=== PATIENT | female | born 1955 | race Caucasian/White ===

== ENCOUNTER 2024-01-21 20:31 | Inpatient (IN) | payer MEDICARE, OTHER, SELFPAY ==
[2024-01-21] VITALS (7 sets, daily range): BP systolic 105–208; BP diastolic 56–130; BMI 29.7; BMI 28.7
--- NOTE | 2024-01-21 16:12 | ED.GENMED ---
History of Present Illness
<Eveline Mora PA-C - Last Filed: 01/21/24 19:21>
General
Chief Complaint: Back Pain
Source: patient
Exam Limitations: none
Time Seen by Provider: 01/21/24 16:07
Nursing documentation reviewed up to this point in time: agreed with
History of Present Illness
History of Present Illness:
68-year-old female with past medical history of chronic cholecystitis, prior CVA with left-sided urosepsis, insulin-dependent diabetes, presents emergency room today with right-sided low back pain and burning with urination. Patient states that a
few days ago, she started to have burning with urination was diagnosed with a urinary tract infection. She started on trimethoprim. She had 3 days of this antibiotic. This morning she woke up with right-sided flank pain and notes that her
urinary symptoms have not improved. She also was told that she has a fungal infection of her vagina which is also causing her discomfort. She also states that she has intermittent nausea. She denies fevers or chills, vomiting, diarrhea,
constipation. She states that she has a history of recurrent UTIs and urosepsis which she has been hospitalized for at [facility] multiple times in the past. Her urologist of Dr. Cari Lawton. She denies feelings of urinary retention.
Review of Systems
<Eveline Mora PA-C - Last Filed: 01/21/24 19:21>
Review of Systems
All Other Systems: ROS reviewed and negative except as documented in HPI and ROS
Phy Exam
<Eveline Mora PA-C - Last Filed: 01/21/24 19:21>
Physical Exam
Physical Exam:
General: Patient is well appearing and in no acute distress; non-toxic
Skin: Warm and dry, no rashes or lesions
Head: Normocephalic, atraumatic
Eyes: Sclera non-icteric. EOMs intact. PERRLA.
Cardiac: Regular rate and rhythm, no murmurs
Peripheral Vascular: No lower extremity swelling or edema
Pulm: Normal respiratory effort
Abdomen: Lower abdominal tenderness noted to palpation, no rebound tenderness, no guarding.Right sided CVA tenderness noted, no overlying ecchymosis.
Genitourinary: Erythema and macular rash noted to vulva and labia.
Neuro: CN II-XII intact, left sided hemiparesis noted (chronic)
Psychiatric: Appropriate mood and affect.
Course
<Eveline Mora PA-C - Last Filed: 01/21/24 19:21>
Orders/Labs/Results
Orders:
Orders
01/21/24 16:21
Complete Blood Count/With Diff Urgent
Comprehensive Metabolic Panel Urgent
Lipase Urgent
Comment: ADD ON
01/21/24 16:53
CT Abd/pelvis W Iv Cont Urgent
Comment:
Reason For Exam: right flank pain, diffuse abdominal pain
01/21/24 16:55
0.9% Sodium Chloride 500 ml [Nss] 500 ml IV BOLUS
01/21/24 17:06
Urinalysis Reflex To Culture Urgent
Date Specimen was Collected: 01/21/24
Time Specimen was Collected: 16:11
Urine Microscopic Reflex Cult Urgent
Urine Culture Urgent
SRIDHAR Source: U
Specimen Description:
Date Specimen was Collected: 01/21/24
Time Specimen was Collected: 16:11
01/21/24 17:21
Morphine Sulfate 4 mg IV NOW STA
01/21/24 17:32
CT Abd/pel Without Iv Or Oral Urgent
Comment:
Reason For Exam: right flank pain
01/21/24 18:08
Add On- LAB Urgent
Tests Added?: lipase
01/21/24 19:09
Aztreonam [Azactam] 1,000 mg IV NOW STA
01/21/24 19:11
Sterile Water [Sterile Water For Injection] 10 ml IV NOW STA
Abnormal Lab Results
01/21/24 01/21/24
16:21 17:06
WBC 12.6 H 10^3/uL
(4.8-10.8)
MPV 11.0 H fL
(7.4-10.4)
Abs Immat Gran (auto) 0.1 H 10^3/uL
(0-0.05)
Absolute Neuts (auto) 6.9 H 10^3/uL
(1.4-6.5)
Absolute Lymphs (auto) 4.0 H 10^3/uL
(1.2-3.4)
Absolute Monos (auto) 1.0 H 10^3/uL
(0.1-0.6)
Potassium 5.3 H mmol/L
(3.5-5.1)
Glucose 305 H mg/dl
(70-99)
AST 77 H U/L
(14-36)
ALT 88 H U/L
(0-35)
Alkaline Phosphatase 157 H U/L
(38-126)
Lipase 306 H U/L
(23-300)
Ur Occult Blood Reflex 4+ A
(Negative)
Leukocyte Esterase Rfl 2+ A
(Negative)
Urine RBC 50-60 A /HPF
(0-2)
Urine WBC (Reflex) 30-40 A /HPF
(0-5)
Urine Bacteria (Reflex) Few A
(Negative)
Urine Glucose Trace A
(Negative)
Urine Albumin (Reflex) 1+ A
(Neg - Trace)
01/21/24 16:21
01/21/24 16:21
Vital Signs
Initial and Last Documented VS:
Initial Vital Signs
Temp Pulse Resp BP Pulse Ox
98.6 F 87 15 137/76 97
01/21/24 16:04 01/21/24 16:04 01/21/24 16:04 01/21/24 16:04 01/21/24 16:04
Last Documented Vital Signs
Temp Pulse Resp BP Pulse Ox
98.6 F 76 15 128/64 98
01/21/24 16:04 01/21/24 18:45 01/21/24 18:45 01/21/24 17:00 01/21/24 18:45
<Turner Schaeffer MD - Last Filed: 01/21/24 19:08>
Orders/Labs/Results
Orders:
Orders
01/21/24 16:21
Complete Blood Count/With Diff Urgent
Comprehensive Metabolic Panel Urgent
Lipase Urgent
Comment: ADD ON
01/21/24 16:53
CT Abd/pelvis W Iv Cont Urgent
Comment:
Reason For Exam: right flank pain, diffuse abdominal pain
01/21/24 16:55
0.9% Sodium Chloride 500 ml [Nss] 500 ml IV BOLUS
01/21/24 17:06
Urinalysis Reflex To Culture Urgent
Date Specimen was Collected: 01/21/24
Time Specimen was Collected: 16:11
Urine Microscopic Reflex Cult Urgent
Urine Culture Urgent
SRIDHAR Source: U
Specimen Description:
Date Specimen was Collected: 01/21/24
Time Specimen was Collected: 16:11
01/21/24 17:21
Morphine Sulfate 4 mg IV NOW STA
01/21/24 17:32
CT Abd/pel Without Iv Or Oral Urgent
Comment:
Reason For Exam: right flank pain
01/21/24 18:08
Add On- LAB Urgent
Tests Added?: lipase
01/21/24 19:09
Aztreonam [Azactam] 1,000 mg IV NOW STA
01/21/24 19:11
Sterile Water [Sterile Water For Injection] 10 ml IV NOW STA
Abnormal Lab Results
01/21/24 01/21/24
16:21 17:06
WBC 12.6 H 10^3/uL
(4.8-10.8)
MPV 11.0 H fL
(7.4-10.4)
Abs Immat Gran (auto) 0.1 H 10^3/uL
(0-0.05)
Absolute Neuts (auto) 6.9 H 10^3/uL
(1.4-6.5)
Absolute Lymphs (auto) 4.0 H 10^3/uL
(1.2-3.4)
Absolute Monos (auto) 1.0 H 10^3/uL
(0.1-0.6)
Potassium 5.3 H mmol/L
(3.5-5.1)
Glucose 305 H mg/dl
(70-99)
AST 77 H U/L
(14-36)
ALT 88 H U/L
(0-35)
Alkaline Phosphatase 157 H U/L
(38-126)
Lipase 306 H U/L
(23-300)
Ur Occult Blood Reflex 4+ A
(Negative)
Leukocyte Esterase Rfl 2+ A
(Negative)
Urine RBC 50-60 A /HPF
(0-2)
Urine WBC (Reflex) 30-40 A /HPF
(0-5)
Urine Bacteria (Reflex) Few A
(Negative)
Urine Glucose Trace A
(Negative)
Urine Albumin (Reflex) 1+ A
(Neg - Trace)
01/21/24 16:21
01/21/24 16:21
Vital Signs
Initial and Last Documented VS:
Initial Vital Signs
Temp Pulse Resp BP Pulse Ox
98.6 F 87 15 137/76 97
01/21/24 16:04 01/21/24 16:04 01/21/24 16:04 01/21/24 16:04 01/21/24 16:04
Last Documented Vital Signs
Temp Pulse Resp BP Pulse Ox
98.6 F 76 15 128/64 98
01/21/24 16:04 01/21/24 18:45 01/21/24 18:45 01/21/24 17:00 01/21/24 18:45
<Eveline Mora PA-C - Last Filed: 01/21/24 19:21>
MDM/Problems Addressed
Differential Diagnosis Includes:
ddx include acute cystitis, pyelonephritis, nephrolithiasis, loin pain hematuria syndrome, renal cyst, AAA
MDM/Problems Addressed:
68-year-old female with past medical history of chronic cholecystitis, prior CVA with left-sided, recurrent UTIs/urosepsis, insulin-dependent diabetes, presents emergency room today with right-sided low back pain and burning with urination. Most
recent admission was at the end of November at [facility] for urosepsis. Did obtain records from [facility]. Patient was found to have a UTI today despite treatment with outpatient antibiotics, and considering flank pain and her other systemic
symptoms, will admit for IV antibiotics for treatment of pyelonephritis. CAT scan revealed no evidence of obstruction or hydronephrosis. Considering patient's multiple antibiotic allergies to penicillins and fluoroquinolones, will start aztreonam.
Chronic conditions affecting care:
prior CVA, recurrent UTIs
<Eveline Mora PA-C - Last Filed: 01/21/24 19:21>
*Pulse Oximetry
Patient hypoxic: no
*Critical Care Note
Total Time (30-74mins, 75-104mins- exclusive of procedures): Not Applicable
Data Reviewed
Review of Other/Old Records Reveals: Records (Reviewed prior urine cultures and discharge summary from [facility])
Source: patient and records
<Eveline Mora PA-C - Last Filed: 01/21/24 19:21>
Patient Management
Escalation/DeEscalation of care consider admission/obs:
patient referred for admission
ED Attending Note
<Eveline Mora PA-C - Last Filed: 01/21/24 19:21>
-
Portions of this chart may have been created with voice recognition software.� Occasional wrong word or��sound alike� substitutions may have occurred due to the inherent limitations of voice recognition software.
<Turner Schaeffer MD - Last Filed: 01/21/24 19:08>
ED Attending Note
Patient seen and examined by attending physician: Yes
ED Attending Note:
I have seen and evaluated the patient with a [id number] encounter. I have spoken to the advance practicer provider and involved in the medical history, the physical exam, medical decision making.
Evaluation and management service: agree unless noted differently below.
Results interpretation: agree unless noted differently below.
Focused HPI: 68-year-old female with a past medical history of insulin-dependent diabetes and frequent UTIs, prior stroke with left hemiparesis who presents to the emergency department from [facility] for evaluation of back pain and urinary
symptoms. Patient reports that she started having dysuria, increased frequency for the past few positive and was started on trimethoprim yesterday. She says that symptoms have not improved after 24 hours of antibiotics and she is starting to have
right flank pain which prompted her to come to the emergency room for assessment. She denies any fevers or chills. She denies any nausea or vomiting. She does have some suprapubic pain. She has history of frequent UTIs.
Physical exam: Awake alert non-distressed. Vital signs normal. Abdomen soft, tender in the suprapubic region. She has right CVA tenderness. She has left hemiparesis. She has some erythema in the inguinal creases and around the labia.
Medical Decision Makin-year-old female presents with urinary symptoms and flank pain in the setting of recently diagnosed outpatient UTI. CMP shows hyperglycemia with glucose of 305, no signs of DKA. Marginal hyperkalemia 5.3. LFTs
marginally abnormal. Urinalysis positive for infection with bacteria and pyuria. Sent for CT abdomen pelvis which showed no clear acute pathology, no kidney stone. Will plan to admit for acute pyelonephritis. Given fluids, antibiotics.
Discharge Plan
Departure
Patient Disposition: Admit
Date of Disposition: 01/21/24
Time of Disposition: 19:06
Admit to: Med/Surg
Presentation/result/management discussed w/ accepting MD/DO: Hospitalist
Patient with high blood pressure during this ER visit?: Yes
Condition: Fair
Discharge Problem:
Acute pyelonephritis
Prescriptions:
No Action
quetiapine 25 mg Tablet
12.5 mg PO BID
fluticasone propion-salmeterol [Advair Diskus] 250-50 mcg/dose Blister With Device
1 inh INHALATION R BID
atorvastatin 80 mg Tablet
80 mg PO HS
acetaminophen [Tylenol] 325 mg Tablet
650 mg PO Q4HPRN PRN (Reason: mild pain/temp >100)
ipratropium-albuterol 0.5 mg-3 mg(2.5 mg base)/3 mL Solution For Nebulization
3 ml INHALATION R Q6HPRN PRN (Reason: sob)
omega-3 fatty acids 1,000 mg Capsule
1,000 mg PO DAILY
polyethylene glycol 3350 [Miralax] 17 gram Powder In Packet
17 g PO DAILYPRN PRN (Reason: constipation)
sennosides-docusate sodium 8.6-50 mg Tablet
2 tab-cap PO DAILY
amlodipine 2.5 mg Tablet
2.5 mg PO DAILY
melatonin 3 mg Tablet
6 mg PO HS
clopidogrel 75 mg Tablet
75 mg PO DAILY
trimethoprim 100 mg Tablet
100 mg PO DAILY
guaifenesin 100 mg/5 mL Liquid
100 mg PO Q4HPRN PRN (Reason: cough)
nortriptyline 25 mg Capsule
25 mg PO Q48H
hydromorphone 2 mg Tablet
2 mg PO [id number] PRN (Reason: severe pain)
famotidine 20 mg Tablet
20 mg PO HS
magnesium hydroxide [Milk of Magnesia] 400 mg/5 mL Suspension
30 ml PO [id number] PRN (Reason: no bm 3 days)
gabapentin 800 mg Tablet
800 mg PO QID
phenazopyridine 100 mg Tablet
100 mg PO TIDPRN PRN (Reason: bladder pain)
baclofen 10 mg Tablet
10 mg PO TID
insulin aspart U-100 100 unit/mL Solution
10 unit SC MEALS
bisacodyl [Dulcolax (bisacodyl)] 10 mg Suppository
10 mg NM DAILYPRN PRN (Reason: if mom ineffective after 24 hours)
Fleet Enema 19-7 gram/118 mL Enema
118 ml NM DAILYPRN PRN (Reason: if dulcolax ineffective aftr 24 hours)
docusate sodium 100 mg Capsule
100 mg PO BID
calcium carbonate 500 mg calcium (1,250 mg) Tablet,Chewable
500 mg PO Q6HPRN PRN (Reason: indigestion)
estradiol 0.01 % (0.1 mg/gram) Cream
2 g VAGINAL Q48H
lisinopril 40 mg Tablet
40 mg PO DAILY
fluticasone propionate [Flonase] 50 mcg/actuation [place],Suspension
2 spray INTRANASAL DAILY
loratadine [Claritin] 10 mg Tablet
10 mg PO DAILY
alum-mag hydroxide-simeth [Maalox Maximum Strength] 400-400-40 mg/5 mL Suspension
30 ml PO Q4HPRN PRN (Reason: indigestion)
Systane Ultra 0.4-0.3 % Drops
1 drp BOTH EYES TID
insulin glargine [Lantus Solostar U-100 Insulin] 100 unit/mL (3 mL) Insulin Pen
32 unit SC BID
cholecalciferol (vitamin D3) [Vitamin D3] 50 mcg (2,000 unit) Tablet
50 mcg PO DAILY
Cepacol Sore Throat (petty-men) 15-3.6 mg Lozenge
1 shade MUCOUS MEMBRANE Q6HPRN PRN (Reason: sore throat)
d-mannose 500 mg Capsule
500 mg PO DAILY
boric acid 600 mg Suppository
600 mg VAGINAL HS
Patient Comments:
01/21/24: to take for 14 days, starting 01/16/24
Interventions
Interventions:
*Risk Screen - Suicide Last Done: 01/21/24 16:09
*General Assessment Last Done: 01/21/24 16:09
*Neglect/Abuse Screening Last Done: 01/21/24 16:09
*ED COVID-19 Vaccine History Last Done: 01/21/24 16:09
ED-Musculoskeletal Assessment Last Done: 01/21/24 16:15
Discharge Date and Time
Print Language: BAHRAINI
--- NOTE | 2024-01-21 16:25 | EDRN ---
pt came to the emergency department from [facility] d/t concerns for a UTI. pt states multiple times that she was diagnosed with a UTI at the facility via peeing into a 'clean' bed [place]. pt reports starting antibiotics today while at
the facility, but when she urinates the pain is 'excruciating.' she came to the emergency department for further treatment d/t hx of sepsis from UTI's. upon arrival, this RN informed the patient we need to straight cath her in order to get the
cleanest, most accurate urine specimen to be able to most appropriately treat her. pt continuously refuses and states she is 'unable to tolerate it' and requesting to 'knock her out' in order for us to catheterize her. pt requesting IV Dilaudid
multiple times for which this RN as well as MJ Mosquera informed her that we do not medicate with IV narcotics for a quick procedure. pt adamantly refusing and stating 'I should have went to [place].' pt explained in depth the risks & benefits of
straight cath, for which patient continued to refuse.
[2024-01-21 16:29] LABS: % Basophils 1.3 % (0-2); % Eosinophils 3.7 % (0-6); % Immature Granulocytes 0.4 % (0-0.5); % Lymphocytes 31.7 % (20.5-51.1); % Monocytes 7.9 % (1.7-9.3); Absolute Basophils 0.2 10^3/uL (0-0.2); Absolute Eosinophils 0.5 10^3/uL (0-0.7); Absolute Immature Granulocytes 0.1 10^3/uL (0-0.05); Absolute Neutrophils 6.9 10^3/uL (1.4-6.5); Hematocrit 37.9 % (37.0-47.0); Hemoglobin 12.7 g/dL (12.0-16.0); Mean Corp Hgb Conc. 33.5 g/dL (33.0-37.0); Mean Corpuscular Hgb 27.9 pg (27.0-31.0); Mean Corpuscular Volume 83.1 fL (81.0-99.0); Nucleated Red Blood Cells % 0 %; Platelet Count 333 10^3/uL (130-400); Red Blood Cell Count 4.56 10^6/uL (4.20-5.40); Red Cell Dist. Width 14.1 % (11.5-14.5); White Blood Cell Count 12.6 10^3/uL (4.8-10.8)
[2024-01-21 16:41] LABS: ALT (SGPT) 88 U/L (0-35); AST (SGOT) 77 U/L (14-36); Alkaline Phosphatase 157 U/L (38-126); Blood Urea Nitrogen 14 mg/dl (7-17); Calcium 9.5 mg/dl (8.4-10.2); Carbon Dioxide 26 mmol/L (22-30); Chloride 99 mmol/L (98-107); Estimated Creatinine Clearance 100 ml/min; Glucose 305 mg/dl (70-99); Potassium 5.3 mmol/L (3.5-5.1); Sodium 140 mmol/L (135-145); Total Bilirubin 0.5 mg/dl (0.2-1.3); Total Protein 7.9 g/dl (6.3-8.2); eGFR > 60.00
[2024-01-21 17:19] LABS: Urine Albumin 1+ (Neg - Trace); Urine Bilirubin Negative (Negative); Urine Character Very Cloudy (Clear); Urine Color Yellow; Urine Glucose Trace (Negative); Urine Ketone Negative (Negative); Urine Leukocyte 2+ (Negative); Urine Nitrite Negative (Negative); Urine Occult Blood 4+ (Negative); Urine Urobilinogen Negative (Neg - 1+)
[2024-01-21 17:30] LABS: Urine Squamous Cell 0-2 /LPF (Few)
[2024-01-21 17:31] LABS: Urine White Cell 30-40 /HPF (0-5)
[2024-01-21 17:32] LABS: Urine Bacteria Few (Negative); Urine Red Blood Cell 50-60 /HPF (0-2)
--- NOTE | 2024-01-21 17:59 | EDRN ---
this RN as well as MJ Mosquera again discussed w/ patient about the importance of straight cath. pt stating she 'would rather give than get a straight cath.' this RN & Hope consistently reassured patient that the procedure is very quick and will
only take a few seconds. this RN and MJ Mosquera spoke with patient in calm and nurturing manner and pt agreed to let us look at vagina to assess for any swelling, discharge, etc. while assessing, this RN clearly saw patient's urethra. I explained to
the patient that the urethra is clear and I am able to get the urine very quickly. I fully explained to the patient that I was cleaning her vagina with iodine. I then inserted the catheter and received immediate return of urine which was extremely
cloudy in appearance. pt tolerated procedure well, was cleaned, and left resting comfortably in bed. UA sample sent down to the lab.
[2024-01-21] MEDS: NSS 500 IV (18:10)
[2024-01-21] MEDS: MORPHINE SULFATE 4 MG IV (18:11)
[2024-01-21 18:40] LABS: Lipase 306 U/L (23-300)
[2024-01-21] MEDS: AZACTAM 1000 MG IV (19:19)
[2024-01-21] MEDS: STERILE WATER FOR INJECTION 10 ML IV (19:19)
--- NOTE | 2024-01-21 19:53 | EDRN ---
pt c/o intense lower abdominal pain w/ inability to void. pt now requesting to be straight cathed due to retention. this RN bladder scanned patient and scanned for 418ml. Dr. Schaeffer OK'd this RN to straight cath patient for acute retention. pt had
about 450ml drained from her bladder with relief of symptoms.
--- NOTE | 2024-01-21 20:11 | HPS.HSE ---
Family Physician
-
Family Physician: Christophe Winters
Chief Complaint
-
urinary symptoms
History of Present Illness
68-year-old female past medical history of CVA in 2015 with residual left-sided paralysis, controlled hypertension, recurrent UTIs, prior left-sided pyelonephritis, diabetes, uterine cancer status post hysterectomy, neuropathy of left leg,
anxiety/depression, asthma presenting with right-sided flank pain and burning with urination for the past week. She is having severe pain with urination also having difficulty urinating. She has nausea but denies any fevers or chills. She denies
diarrhea or constipation. Denies history of kidney stones. She was started on trimethoprim without improvement.
She was diagnosed with vaginal yeast infection 3 weeks ago and started on boric acid without any improvement.
She states that her blood sugars been controlled.
She has been having sore throat for the past 5 days and headache. She denies any cough.
Medical History
Past Medical History
Past Medical History: Reports Other (CVA in 2015 with residual left-sided paralysis, controlled hypertension, recurrent UTIs, prior left-sided pyelonephritis, diabetes, uterine cancer status post hysterectomy, neuropathy of left leg,
anxiety/depression, asthma)
Past Surgical History: Reports Other (Tonsillectomy, hysterectomy, IR drain of gall bladder )
Social History
Tobacco: Non-smoker
Alcohol: Occasional
Drug: None
Family History
Family History: Not pertinent
Allergies / Home Medications
Allergies reflects when Allergies were last updated in [employer].
Home Medications with original date entered in [employer]
Allergy/Medication List:
Allergies
Allergy/AdvReac Type Severity Reaction Status Date / Time
aspirin Allergy Unknown Verified 01/21/24 17:19
azithromycin Allergy Unknown Verified 01/21/24 17:21
cefuroxime Allergy Unknown Verified 01/21/24 17:21
ciprofloxacin Allergy Unknown Verified 01/21/24 17:21
glimepiride Allergy Unknown Verified 01/21/24 17:21
Iodinated Contrast Media Allergy Unknown Verified 01/21/24 17:21
levofloxacin Allergy Unknown Verified 01/21/24 17:21
melon Allergy Unknown Verified 01/21/24 17:21
metformin Allergy Unknown Verified 01/21/24 17:21
Penicillins Allergy Unknown Verified 01/21/24 17:21
Home Medications
acetaminophen 325 mg tablet (Tylenol) 650 mg PO Q4HPRN PRN mild pain/temp >100 01/21/24
aluminum-mag hydroxide-simethicone 400 mg-400 mg-40 mg/5 mL oral susp (Maalox Maximum Strength) 30 ml PO Q4HPRN PRN indigestion 01/21/24
amlodipine 2.5 mg tablet 2.5 mg PO DAILY 01/21/24
atorvastatin 80 mg tablet 80 mg PO HS 01/21/24
baclofen 10 mg tablet 10 mg PO TID 01/21/24
benzocaine 15 mg-menthol 3.6 mg lozenges (Cepacol Sore Throat (benzocaine-menthol)) 1 shade mucous membrane Q6HPRN PRN sore throat 01/21/24
bisacodyl 10 mg rectal suppository (Dulcolax (bisacodyl)) 10 mg AR DAILYPRN PRN if mom ineffective after 24 hours 01/21/24
boric acid 600 mg vaginal suppository 600 mg vaginal HS 01/21/24
calcium carbonate 500 mg PO Q6HPRN PRN indigestion 01/21/24
cholecalciferol (vitamin D3) 50 mcg (2,000 unit) tablet (Vitamin D3) 50 mcg PO DAILY 01/21/24
clopidogrel 75 mg tablet 75 mg PO DAILY 01/21/24
d-mannose 500 mg capsule 500 mg PO DAILY 01/21/24
docusate sodium 100 mg capsule 100 mg PO BID 01/21/24
estradiol 0.01% (0.1 mg/gram) vaginal cream 2 g vaginal Q48H 01/21/24
famotidine 20 mg tablet 20 mg PO HS 01/21/24
fluticasone 250 mcg-salmeterol 50 mcg/dose blistr powdr for inhalation (Advair Diskus) 1 inh inhalation R BID 01/21/24
fluticasone propionate 50 mcg/actuation nasal spray,suspension 2 spray intranasal DAILY 01/21/24
gabapentin 800 mg tablet 800 mg PO QID 01/21/24
guaifenesin 100 mg/5 mL oral liquid 100 mg PO Q4HPRN PRN cough 01/21/24
hydromorphone 2 mg tablet 2 mg PO [id number] PRN severe pain 01/21/24
insulin aspart U-100 100 unit/mL subcutaneous solution 10 unit SC MEALS 01/21/24
insulin glargine 100 unit/mL (3 mL) subcutaneous pen (Lantus Solostar U-100 Insulin) 32 unit SC BID 01/21/24
ipratropium 0.5 mg-albuterol 3 mg (2.5 mg base)/3 mL nebulization soln 3 ml inhalation R Q6HPRN PRN sob 01/21/24
lisinopril 40 mg tablet 40 mg PO DAILY 01/21/24
loratadine 10 mg tablet (Claritin) 10 mg PO DAILY 01/21/24
magnesium hydroxide 400 mg/5 mL oral suspension (Milk of Magnesia) 30 ml PO [id number] PRN no bm 3 days 01/21/24
melatonin 3 mg tablet 6 mg PO HS 01/21/24
nortriptyline 25 mg capsule 25 mg PO Q48H 01/21/24
omega-3 fatty acids 1,000 mg capsule 1,000 mg PO DAILY 01/21/24
peg 400-propylene glycol 0.4 %-0.3 % eye drops (Systane Ultra) 1 drp BOTH EYES TID 01/21/24
phenazopyridine 100 mg tablet 100 mg PO TIDPRN PRN bladder pain 01/21/24
polyethylene glycol 3350 17 gram oral powder packet (Miralax) 17 g PO DAILYPRN PRN constipation 01/21/24
quetiapine 25 mg tablet 12.5 mg PO BID 01/21/24
sennosides 8.6 mg-docusate sodium 50 mg tablet 2 tab-cap PO DAILY 01/21/24
sodium phosphates 19 gram-7 gram/118 mL enema (Fleet Enema) 118 ml AR DAILYPRN PRN if dulcolax ineffective aftr 24 hours 01/21/24
trimethoprim 100 mg tablet 100 mg PO DAILY 01/21/24
Review of Systems
-
History Source: Patient
A 12 point ROS was completed and negative except as noted: Yes
Constitutional: Reports No Symptoms
EENT: Reports No Symptoms
Respiratory: Reports No Symptoms
Cardiac: Reports No Symptoms
Abdomen/GI: Reports No Symptoms
: Reports See HPI
Musculoskeletal: Reports No Symptoms
Skin: Reports No Symptoms
Neurological: Reports No Symptoms
Endocrine: Reports No Symptoms
Hematologic/Lymphatic: Reports No Symptoms
Psych: Reports No Symptoms
Physical Exam
Vital Signs
Vital Signs
Temp Pulse Resp BP Pulse Ox
98.6 F 107 16 189/81 100
01/21/24 16:04 01/21/24 19:50 01/21/24 19:50 01/21/24 19:50 01/21/24 19:25
Physical Exam
General: Well Developed, Well Nourished and No Apparent Distress
HEENT: NormoCephalic, Moist mucous membranes and Atraumatic
Respiratory: Clear
Cardiac: S1/S2 and Regular Rhythm; No Murmur or Rub
GI: Soft, Non Tender, Non Distended and Normal Bowel Sounds; No Organomegaly
Rectal: Deferred by Provider
Musculoskeletal: No Clubbing, No Cyanosis and No Edema
Skin: No Rash
Neuro: Nonfocal/grossly intact
Laboratory Results
-
01/21/24 16:21
01/21/24 16:21
Laboratory Results
Total Bilirubin 0.5 mg/dl (0.2-1.3) 01/21/24 16:21
AST 77 U/L (14-36) H 01/21/24 16:21
ALT 88 U/L (0-35) H 01/21/24 16:21
Alkaline Phosphatase 157 U/L (38-126) H 01/21/24 16:21
Lipase 306 U/L (23-300) H 01/21/24 16:21
Data Reviewed
-
Lab Data: Labs Reviewed by me
Old Records: Reviewed
Impression/Plan
-
IMPRESSION:
PLAN:
# Urinary tract infection with associated urinary retention
# History of frequent UTIs, prior left-sided pyelonephritis
-Bladder scan of 400 cc, patient required straight catheterization, bladder scan protocol
-Leukocytosis
-Urinalysis positive for infection, urine culture pending
-CT abdomen pelvis shows urinary bladder wall thickening likely cystitis without calculus or dilation present
-Hold IV fluids due to hypertension
-Aztreonam given allergy
-Continue Pyridium
-stop d mannose
# Hypertensive urgency secondary to pain
-Treat pain with other measures
# Hyperkalemia secondary to lisinopril
-Hold lisinopril
# Transaminitis
-Continue to monitor
# Hyperglycemia secondary to infection
# Type 2 diabetes
-Continue Lantus 30 units twice daily
-Insulin sliding scale
# Vaginal yeast infection
-Stop boric acid
-Fluconazole dose
# Sore throat/headache
-Check COVID
History of cholecystitis status post drain
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
-Continue statin
-Continue Plavix
Left sided neuropathy
-Continue nortriptyline, Dilaudid, gabapentin, baclofen
Essential hypertension
-Continue amlodipine
-Hold lisinopril
History of uterine cancer status post hysterectomy
Anxiety/depression
-Continue Seroquel
Full code
DVT prophylaxis�heparin
Diabetic diet
[2024-01-21 21:19] LABS: COVID-19 Antigen Negative (Negative)
[2024-01-21] MEDS: DIFLUCAN 150 MG PO (21:25)
[2024-01-21 22:12] LABS: Glucose - Point of Care 263 mg/dl (70-99)
[2024-01-21] MEDS: PEPCID 20 MG PO (22:36)
[2024-01-21] MEDS: REFRESH EYE DROPS (PF) 1 DROPS BOTH EYES (22:36)
[2024-01-21] MEDS: NEURONTIN 800 MG PO (22:36)
[2024-01-21] MEDS: LIPITOR 80 MG PO (22:36)
[2024-01-21] MEDS: LIORESAL 10 MG PO (22:37)
[2024-01-21] MEDS: LANTUS 0.32 UNITS SC (22:37)
[2024-01-21] MEDS: MELATONIN 6 MG PO (22:37)
[2024-01-21] MEDS: PAMELOR 25 MG PO (22:57)
[2024-01-22] MEDS: DILAUDID 2 MG PO ×3 (03:40→17:47)
[2024-01-22] MEDS: STERILE WATER FOR INJECTION 10 ML IV ×3 (03:40→21:02)
[2024-01-22] MEDS: AZACTAM 1000 MG IV ×3 (03:40→21:02)
[2024-01-22] MEDS: Pyridium 100 MG PO (03:41)
[2024-01-22 07:14] VITALS: BP 124/59
[2024-01-22] MEDS: ADVAIR HFA 115/21 MCG INHALER 2 PUFF INH ×2 (07:46→20:20)
[2024-01-22 08:06] LABS: Glucose - Point of Care 223 mg/dl (70-99)
[2024-01-22 08:07] LABS: % Basophils 1.5 % (0-2); % Eosinophils 4.3 % (0-6); % Immature Granulocytes 0.3 % (0-0.5); % Lymphocytes 34.6 % (20.5-51.1); % Monocytes 8.5 % (1.7-9.3); % Neutrophils 50.8 % (42.2-75.2); Absolute Basophils 0.2 10^3/uL (0-0.2); Absolute Eosinophils 0.5 10^3/uL (0-0.7); Absolute Lymphocytes 3.8 10^3/uL (1.2-3.4); Absolute Monocytes 0.9 10^3/uL (0.1-0.6); Absolute Neutrophils 5.5 10^3/uL (1.4-6.5); Hematocrit 37.7 % (37.0-47.0); Hemoglobin 12.5 g/dL (12.0-16.0); Mean Corp Hgb Conc. 33.2 g/dL (33.0-37.0); Mean Corpuscular Hgb 27.5 pg (27.0-31.0); Mean Corpuscular Volume 82.9 fL (81.0-99.0); Mean Platelet Volume 10.7 fL (7.4-10.4); Nucleated Red Blood Cells % 0 %; Platelet Count 372 10^3/uL (130-400); Red Blood Cell Count 4.55 10^6/uL (4.20-5.40); Red Cell Dist. Width 14.2 % (11.5-14.5); White Blood Cell Count 10.9 10^3/uL (4.8-10.8)
[2024-01-22] MEDS: REFRESH EYE DROPS (PF) 1 DROPS BOTH EYES ×3 (08:21→21:11)
[2024-01-22] MEDS: CLARITIN 10 MG PO (08:22)
[2024-01-22] MEDS: PLAVIX 75 MG PO (08:22)
[2024-01-22] MEDS: NEURONTIN 800 MG PO ×2 (08:22→17:18)
[2024-01-22] MEDS: SENOKOT-S 2 TABLET PO (08:23)
[2024-01-22] MEDS: VITAMIN D3 (cholecalciferol) 50 MCG PO (08:23)
[2024-01-22] MEDS: SEROQUEL 12.5 MG PO (08:23)
[2024-01-22] MEDS: COLACE 100 MG PO (08:24)
[2024-01-22] MEDS: NORVASC 2.5 MG PO (08:25)
[2024-01-22] MEDS: NOVOLOG FLEXPEN-LOW RESISTANCE 2 UNITS SC (08:26)
[2024-01-22] MEDS: DESENEX/MITRAZOL/ZEASORB 1 APPLIC TOPICAL ×2 (08:27→21:17)
[2024-01-22] MEDS: HEPARIN 5000 UNITS SC ×2 (08:27→21:13)
[2024-01-22 08:31] LABS: ALT (SGPT) 92 U/L (0-35); AST (SGOT) 78 U/L (14-36); Albumin 3.7 g/dl (3.5-5.0); Alkaline Phosphatase 134 U/L (38-126); Blood Urea Nitrogen 14 mg/dl (7-17); Calcium 9.4 mg/dl (8.4-10.2); Carbon Dioxide 27 mmol/L (22-30); Chloride 102 mmol/L (98-107); Estimated Creatinine Clearance 85 ml/min; Glucose 258 mg/dl (70-99); Potassium 5.7 mmol/L (3.5-5.1); Sodium 142 mmol/L (135-145); Total Bilirubin 0.6 mg/dl (0.2-1.3); Total Protein 7.4 g/dl (6.3-8.2); eGFR > 60.00
[2024-01-22] MEDS: LANTUS 0.32 UNITS SC ×2 (08:33→21:30)
[2024-01-22] MEDS: LIORESAL 10 MG PO ×2 (09:38→17:20)
--- NOTE | 2024-01-22 10:05 | W.PN.HOSP.TC ---
Addendum entered and electronically signed by Dameon Millan MD 01/22/24 10:25:
Ultrasound of the abdomen
Original Note:
Today's Communication/Plan
-
Aztreonam pending urine cultures
Bladder scan for retention, may require Yang catheter if persistent
Adjust insulin regimen
Continue current analgesic regimen with hydromorphone/Tylenol/Neurontin
Phenergan for nausea and vomiting.
Monitor LFTs
Assessment / Plan
Assessment / Plan
Impression:
Complicated UTI associated with urinary retention.
Hyperkalemia secondary to Bactrim and lisinopril.
Vaginal yeast infection
Multiple antibiotics allergies
Constipation
Hypertensive urgency secondary to pain.
Transaminitis in the settings of acute infection
Conditions prior to admission:
Status post CVA with left hemiparesis
IDDM.
Diabetic neuropathy.
Chronic pain requiring opiates.
Essential hypertension.
History of uterine carcinoma status post hysterectomy and bilateral salpingo-oophorectomy.
Anxiety/depression
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
skilled nursing resident
Plan:
UTI complicated with urinary retention
Bladder scan in the ED 400 cc requiring straight catheterization
CT scan of the abdomen and pelvis shows urinary bladder wall thickening likely cystitis without calculus or dilatation present.
Continue bladder scan. May need Yang catheter for decompression if persistent retention
Bowel regimen avoiding constipation
Follow urine cultures.
Initiated on aztreonam
Continue Pyridium
Continue vaginitis.
Hold boric acid
Initiated on Diflucan
Hypertensive urgency likely secondary to pain.
Adjust analgesic regimen increasing oral hydromorphone to 2 mg p.o. every 8 hours as needed.
Hyperkalemia secondary to combination of Bactrim and lisinopril.
Hold lisinopril
Hold Bactrim.
Start Lokelma 10
Follow BMP
Transaminitis in the settings of acute infection
No abdominal complaints other recurrent nausea.
Monitor closely
If up trending, consider imaging
Type 2 diabetes/IDDM with hyperglycemia likely triggered by acute infection.
Continue Lantus/aspart adjusting dose with insulin basal bolus protocol.
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
-Continue statin
-Continue Plavix
Left sided neuropathy
-Continue nortriptyline, Dilaudid, gabapentin, baclofen
Essential hypertension
-Continue amlodipine
-Hold lisinopril
History of uterine cancer status post hysterectomy
Anxiety/depression
-Continue Seroquel
Full code
DVT prophylaxis�heparin
Diabetic diet
Anticipated Discharge: 24 - 48 hours
Subjective/Interval History
-
Date of Service: January 22, 2024
Objective Data
-
Labs:
Laboratory Results
01/22/24
07:38
WBC 10.9 H
Hgb 12.5
Hct 37.7
Plt Count 372
Sodium 142
Potassium 5.7 H
Chloride 102
Carbon Dioxide 27
BUN 14
Creatinine 0.7
Glucose 258 H
Calcium 9.4
Total Bilirubin 0.6
AST 78 H
ALT 92 H
Alkaline Phosphatase 134 H
Vital Signs:
Vital Signs
Temp Pulse Resp BP Pulse Ox
97.6 F 71 16 124/59 99
01/22/24 07:14 01/22/24 07:52 01/22/24 07:52 01/22/24 07:14 01/22/24 07:52
I&O
01/21/24 01/22/24 01/23/24
06:59 06:59 06:59
Output Total 450 / 450
Balance -450 / -450
Physical Exam
-
General: Well Developed and No Apparent Distress
HEENT: Normocephalic, Atraumatic and Moist Mucous Membranes
Respiratory: Clear to Auscultation
Cardiac: Regular Rhythm and S1/S2; Negative Murmur, Rub or Gallop
GI: Soft, Nontender, Nondistended and Normal Bowel Sounds; Negative Organomegaly
Rectal: Deferred by Provider
Musculoskeletal: No Clubbing, No Cyanosis and No Edema
Skin: Negative Rash
Neuro: Other (Left hemiparesis)
[2024-01-22 10:19] LABS: Glycohemoglobin (HgbA1c) 9.6 % (4.0-5.6)
[2024-01-22] MEDS: PHENERGAN 12.5 MG PO ×3 (10:40→22:43)
[2024-01-22] MEDS: MIRALAX PO (10:51)
[2024-01-22] MEDS: TUMS CHEWABLE TABLET 200 MG PO (11:41)
[2024-01-22 11:53] LABS: Glucose - Point of Care 312 mg/dl (70-99)
[2024-01-22] MEDS: NOVOLOG FLEXPEN-LOW RESISTANCE 4 UNITS SC (11:58)
[2024-01-22] MEDS: NEURONTIN PO ×3 (12:07→22:00)
[2024-01-22] MEDS: DILAUDID 1 MG IV (13:45)
[2024-01-22 14:13] VITALS: BMI 28.7
[2024-01-22] MEDS: LOKELMA 10 GRAM PO ×2 (14:27→18:31)
--- NOTE | 2024-01-22 14:37 | PTCARENOTE ---
pt c/o central chest pain radiating bilaterally. hospitalist aware. ekg-nsrw/pvcs. trop and bnp ordered. pt stable. Will monitor.
[2024-01-22 15:37] LABS: NT-proBNP 883 pg/ml; Troponin I < 0.012 ng/ml
[2024-01-22 15:40] VITALS: BP 188/80
[2024-01-22 17:28] LABS: Glucose - Point of Care 268 mg/dl (70-99)
[2024-01-22] MEDS: NOVOLOG FLEXPEN-LOW RESISTANCE 3 UNITS SC (17:28)
[2024-01-22] MEDS: COLACE PO ×2 (21:00→21:07)
[2024-01-22] MEDS: SEROQUEL PO ×2 (21:00→21:04)
[2024-01-22] MEDS: FLUSH (NSS) 2 FLUSH IV ×2 (21:04→23:56)
[2024-01-22] MEDS: ESTRACE 0.01% VAGINAL CREAM 1 APPLIC VAG (21:07)
[2024-01-22 21:09] LABS: Glucose - Point of Care 313 mg/dl (70-99)
[2024-01-22] MEDS: LIPITOR PO ×2 (21:09→22:00)
[2024-01-22] MEDS: MELATONIN PO ×2 (21:10→22:00)
[2024-01-22] MEDS: PEPCID PO ×2 (21:11→22:00)
[2024-01-22] MEDS: LIORESAL PO ×2 (21:15→22:00)
[2024-01-22 23:07] LABS: Glucose - Point of Care 347 mg/dl (70-99)
[2024-01-22 23:15] VITALS: BP 216/93
[2024-01-22] MEDS: APRESOLINE 10 MG IV (23:50)
[2024-01-22] MEDS: NOVOLOG FLEXPEN 5 UNITS SC (23:58)
[2024-01-23 00:45] VITALS: BP 141/67
--- NOTE | 2024-01-23 00:55 | PTCARENOTE ---
BP 216/93 HR 93 @ 2325. Zabrina CALDERÓN notifed of same; Hydralazine IV given as ordered. BP now 141/67 HR 76. R/A sat 96%. Recently vomited 40ml of yellow fld. Refused HS meds earlier because of nausea. Also has c/o chest pain as she did
earlier in day. Dia CALDERÓN notified of same.
[2024-01-23] MEDS: STERILE WATER FOR INJECTION 10 ML IV ×2 (04:05→12:20)
[2024-01-23] MEDS: AZACTAM 1000 MG IV ×2 (04:06→12:20)
[2024-01-23] MEDS: ZOFRAN 4 MG IV (04:15)
[2024-01-23 07:15] VITALS: BP 181/81
[2024-01-23 07:58] LABS: % Basophils 0.7 % (0-2); % Eosinophils 0.1 % (0-6); % Immature Granulocytes 0.5 % (0-0.5); % Lymphocytes 14.1 % (20.5-51.1); % Monocytes 7.8 % (1.7-9.3); % Neutrophils 76.8 % (42.2-75.2); Absolute Basophils 0.1 10^3/uL (0-0.2); Absolute Immature Granulocytes 0.1 10^3/uL (0-0.05); Absolute Lymphocytes 2.4 10^3/uL (1.2-3.4); Absolute Monocytes 1.3 10^3/uL (0.1-0.6); Hematocrit 43.9 % (37.0-47.0); Hemoglobin 14.9 g/dL (12.0-16.0); Mean Corp Hgb Conc. 33.9 g/dL (33.0-37.0); Mean Corpuscular Hgb 28.6 pg (27.0-31.0); Mean Corpuscular Volume 84.3 fL (81.0-99.0); Mean Platelet Volume 10.8 fL (7.4-10.4); Nucleated Red Blood Cells % 0 %; Platelet Count 432 10^3/uL (130-400); Red Blood Cell Count 5.21 10^6/uL (4.20-5.40); Red Cell Dist. Width 14.1 % (11.5-14.5); White Blood Cell Count 16.9 10^3/uL (4.8-10.8)
[2024-01-23] MEDS: ADVAIR HFA 115/21 MCG INHALER 2 PUFF INH ×2 (07:59→19:55)
[2024-01-23 08:06] LABS: Glucose - Point of Care 317 mg/dl (70-99)
--- NOTE | 2024-01-23 09:05 | PTOTSP ---
Chart reviewed, spoke with RN and ok to see patient. Entered room, patient is A&O x3. Patient reports she lives at [facility] and she is diogenes lifted out of bed to . Patient reports she does not perform bed mobility, does not stand or pivot. Patient
has not had PT in a few months at facility. Due to patient's baseline being diogenes lift, no skilled PT needs at this time. Will sign off.
[2024-01-23 09:28] LABS: ALT (SGPT) 89 U/L (0-35); AST (SGOT) 48 U/L (14-36); Albumin 4.4 g/dl (3.5-5.0); Alkaline Phosphatase 151 U/L (38-126); Blood Urea Nitrogen 17 mg/dl (7-17); Calcium 10.7 mg/dl (8.4-10.2); Carbon Dioxide 27 mmol/L (22-30); Chloride 96 mmol/L (98-107); Direct Bilirubin 0.3 mg/dl (0.0-0.4); Estimated Creatinine Clearance 99 ml/min; Glucose 354 mg/dl (70-99); Potassium 5.8 mmol/L (3.5-5.1); Sodium 139 mmol/L (135-145); Total Bilirubin 0.8 mg/dl (0.2-1.3); Total Protein 8.7 g/dl (6.3-8.2); eGFR > 60.00
[2024-01-23] MEDS: LANTUS 0.32 UNITS SC ×2 (09:48→21:44)
[2024-01-23] MEDS: LOKELMA 10 GRAM PO ×2 (09:48→18:13)
[2024-01-23] MEDS: NOVOLOG FLEXPEN-LOW RESISTANCE 4 UNITS SC (09:49)
[2024-01-23] MEDS: DESENEX/MITRAZOL/ZEASORB 1 APPLIC TOPICAL ×2 (09:50→21:45)
[2024-01-23] MEDS: HEPARIN 5000 UNITS SC ×2 (09:51→21:44)
[2024-01-23] MEDS: MIRALAX PO (09:52)
[2024-01-23] MEDS: REFRESH EYE DROPS (PF) 1 DROPS BOTH EYES ×3 (09:53→21:42)
[2024-01-23] MEDS: DILAUDID PO (09:55)
[2024-01-23] MEDS: APRESOLINE 10 MG IV (09:56)
[2024-01-23] MEDS: NORVASC 2.5 MG PO (10:18)
[2024-01-23] MEDS: SEROQUEL 12.5 MG PO ×2 (10:18→21:44)
[2024-01-23] MEDS: PLAVIX PO (10:19)
[2024-01-23] MEDS: LIORESAL 10 MG PO ×3 (10:19→21:44)
[2024-01-23] MEDS: PHENERGAN 12.5 MG PO ×2 (10:21→18:19)
--- NOTE | 2024-01-23 11:31 | CM ---
Addendum entered by Shaina Solomon 01/23/24 11:43:
[facility]
Report #: [phone]
Fax #: [phone]
Original Note:
Patient seen at bedside
IA completed
Per Elizabeth liaison patient is a LTC resident at [facility] with bed hold.
Referral added in careport
PCP: Christophe Rockwell
Pharmacy: [facility]
PLAN: [facility] LT
[2024-01-23 11:49] VITALS: BP 149/66
[2024-01-23] MEDS: SENOKOT-S PO (11:56)
[2024-01-23] MEDS: NEURONTIN PO ×2 (11:56→14:32)
[2024-01-23] MEDS: COLACE PO ×2 (11:56→21:44)
[2024-01-23] MEDS: CLARITIN PO (11:56)
[2024-01-23] MEDS: VITAMIN D3 (cholecalciferol) PO (11:56)
[2024-01-23 12:12] LABS: Glucose - Point of Care 308 mg/dl (70-99)
[2024-01-23] MEDS: PLAVIX 75 MG PO (12:17)
[2024-01-23] MEDS: NOVOLOG FLEXPEN-MODERATE RESISTANCE 7 UNITS SC (12:18)
[2024-01-23] MEDS: FLUSH (NSS) 2 FLUSH IV (12:20)
[2024-01-23] MEDS: DILAUDID 1 MG IV (12:20)
--- NOTE | 2024-01-23 13:58 | CARDSERVLU ---
Echocardiogram with Lumason completed after protocol screening completed. Allergies verified.
Patent IV site: __Rt AC__
IV site flushed with 0.9% NaCl pre and post administration.
Diluted bolus method utilized to enhance visualization of ventricular chadwick.
Total volume given: _1.5__ mL
Patient tolerated all procedures well without complications.
--- NOTE | 2024-01-23 13:59 | PN.CDI ---
CDI
- -
CDI:
Physician Documentation Request
Admit Date: 01/21/24 20:31
Dear Doctor Monty,
Please review the following and provide your response in the progress notes.
Clinical Indicators:
Pt admitted with UTI /HTN Urgency
Documented per ED, ' Patient states that a few days ago, she started to have burning with urination was diagnosed with a urinary tract infection. She started on trimethoprim. She had 3 days of this antibiotic.'
On admit WBC 12.6, HR 117, RR 25
Please clarify which of the following most accurately describes the status of the patient's infection:
Sepsis-POA
- Systemic manifestations of infection, with 2 or more SIRS criteria which include:
- Fever >100.4 degrees F or hypothermia < 96.8 degrees F
- Leukocytosis - WBC > 12,000 or leukopenia - WBC < 4,000 or > 10% bands
- Tachycardia > 90 beats per minute
- Tachypnea - RR > 20 breaths per minute or PaCO2 , 32mmHg
Source: Merck Manual 2013
UTI only , Without Systemic Illness
Other
Use of terms such as suspected, likely, concern for, or probable (associated with a specific diagnosis that is being evaluated, monitored, or treated as if it exists) are acceptable and can be coded in the inpatient setting, when documented at the
time of discharge.
Thank you,
India Sutton RN
CDI Specialist
[facility]
Please use your independent medical judgment in providing your response.
[2024-01-23 16:39] LABS: Glucose - Point of Care 270 mg/dl (70-99)
--- NOTE | 2024-01-23 16:45 | W.PN.HOSP.TC ---
Today's Communication/Plan
-
Continue Diflucan for yeast UTI.
Stop aztreonam.
Follow-up WBC.
Avoid IV narcotics.
Monitor for oversedation on current regimen including oral hydromorphone.
Continue Kcentra follow BMP for hyperkalemia. Hold lisinopril.
Discharge planning
Assessment / Plan
Assessment / Plan
Impression:
Complicated UTI associated with urinary retention.
Hyperkalemia secondary to Bactrim and lisinopril.
Reported vaginal yeast infection
Multiple antibiotics allergies
Constipation
Hypertensive urgency secondary to pain.
Transaminitis in the settings of acute infection
Conditions prior to admission:
Status post CVA with left hemiparesis
IDDM.
Diabetic neuropathy.
Chronic pain requiring opiates.
Essential hypertension.
History of uterine carcinoma status post hysterectomy and bilateral salpingo-oophorectomy.
Anxiety/depression
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
penitentiary resident
Plan:
UTI complicated with urinary retention
Bladder scan in the ED 400 cc requiring straight catheterization
CT scan of the abdomen and pelvis shows urinary bladder wall thickening likely cystitis without calculus or dilatation present.
Continue bladder scan for retention
Bowel regimen avoiding constipation
Urine culture with yeast. Pending sensitivities.
Continue fluconazole
Discontinue aztreonam
Continue Pyridium
Candidal vaginitis reported prior to admission
Hold boric acid
Continue fluconazole
Hypertensive urgency likely secondary to pain.
Adjust analgesic regimen increasing oral hydromorphone to 2 mg p.o. every 8 hours as needed.
Persistent chest pain since admission.
Exam with diffuse reproducible pain all over the chest.
EKG with no ischemia
Negative cardiac markers
Mildly elevated pro CHF BNP, although echocardiogram with preserved biventricular function LVEF of 60 to 65% and clinically with no evidence of volume overload.
Lower extremity Doppler negative for DVT.
VQ scan low probability for PE
Hyperkalemia secondary to combination of Bactrim and lisinopril.
Hold lisinopril
Hold Bactrim.
Continue Lokelma 10 mg twice daily
Follow BMP
Transaminitis in the settings of acute infection
No abdominal complaints other recurrent nausea.
Monitor closely
Ultrasound of the abdomen with no acute hepatobiliary abnormalities
Type 2 diabetes/IDDM with hyperglycemia likely triggered by acute infection.
Continue Lantus/aspart adjusting dose with insulin basal bolus protocol.
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
-Continue statin
-Continue Plavix
Left sided neuropathy
-Continue nortriptyline, Dilaudid, gabapentin, baclofen
Essential hypertension
-Continue amlodipine increasing dose to 10 mg daily
-Hold lisinopril
History of uterine cancer status post hysterectomy
Anxiety/depression
-Continue Seroquel
Chronic pain syndrome with opiate dependence.
Patient requesting IV hydromorphone in addition to already ordered maintenance regimen with oral hydromorphone
No evidence for distress.
Mild reproducible chest pain musculoskeletal.
Found to be over sedated on multiple occasions per
Stop IV hydromorphone
Continue preadmission regimen including oral hydromorphone 2 mg p.o. every 8 hours as needed, Neurontin 800 mg p.o. 4 times daily, Pamelor, baclofen.
Monitor for oversedation.
Full code
DVT prophylaxis�heparin
Diabetic diet
Anticipated Discharge: 24 - 48 hours
Subjective/Interval History
-
Date of Service: January 23, 2024
Objective Data
-
Labs:
Laboratory Results
01/23/24
07:28
WBC 16.9 H
Hgb 14.9
Hct 43.9
Plt Count 432 H
Sodium 139
Potassium 5.8 H
Chloride 96 L
Carbon Dioxide 27
BUN 17
Creatinine 0.6
Glucose 354 H
Calcium 10.7 H
Total Bilirubin 0.8
AST 48 H
ALT 89 H
Alkaline Phosphatase 151 H
Vital Signs:
Vital Signs
Temp Pulse Resp BP Pulse Ox
98.9 F 95 18 149/66 99
01/23/24 11:49 01/23/24 11:49 01/23/24 11:49 01/23/24 11:49 01/23/24 11:49
I&O
01/22/24 01/23/24 01/24/24
06:59 06:59 06:59
Intake Total 420 / 420
Output Total 450 / 450 40 / 40
Balance -450 / -450 380 / 380
Physical Exam
-
General: Well Developed and No Apparent Distress
HEENT: Normocephalic, Atraumatic and Moist Mucous Membranes
Respiratory: Clear to Auscultation
Cardiac: Regular Rhythm and S1/S2; Negative Murmur, Rub or Gallop
GI: Soft, Nontender, Nondistended and Normal Bowel Sounds; Negative Organomegaly
Rectal: Deferred by Provider
Musculoskeletal: No Clubbing, No Cyanosis and No Edema
Skin: Negative Rash
Neuro: Other (Left hemiparesis)
[2024-01-23 16:51] VITALS: BP 152/66
[2024-01-23] MEDS: NOVOLOG FLEXPEN SC ×2 (18:12→18:19)
[2024-01-23] MEDS: LOKELMA PO (18:13)
[2024-01-23] MEDS: NOVOLOG FLEXPEN-MODERATE RESISTANCE 5 UNITS SC (18:15)
[2024-01-23] MEDS: NEURONTIN 800 MG PO ×2 (18:16→21:42)
[2024-01-23 21:27] LABS: Glucose - Point of Care 233 mg/dl (70-99)
[2024-01-23] MEDS: PEPCID 20 MG PO (21:43)
[2024-01-23] MEDS: PAMELOR 25 MG PO (21:43)
[2024-01-23] MEDS: MELATONIN 6 MG PO (21:43)
[2024-01-23] MEDS: LIPITOR 80 MG PO (21:43)
[2024-01-23 23:39] VITALS: BP 152/68
[2024-01-24] MEDS: LOKELMA PO (06:03)
[2024-01-24 06:32] LABS: % Basophils 0.7 % (0-2); % Eosinophils 0.6 % (0-6); % Immature Granulocytes 0.4 % (0-0.5); % Lymphocytes 20.9 % (20.5-51.1); % Monocytes 12.2 % (1.7-9.3); % Neutrophils 65.2 % (42.2-75.2); Absolute Basophils 0.1 10^3/uL (0-0.2); Absolute Eosinophils 0.1 10^3/uL (0-0.7); Absolute Immature Granulocytes 0.1 10^3/uL (0-0.05); Absolute Lymphocytes 3.3 10^3/uL (1.2-3.4); Absolute Neutrophils 10.4 10^3/uL (1.4-6.5); Hematocrit 41.3 % (37.0-47.0); Hemoglobin 13.4 g/dL (12.0-16.0); Mean Corp Hgb Conc. 32.4 g/dL (33.0-37.0); Mean Corpuscular Hgb 27.9 pg (27.0-31.0); Mean Platelet Volume 10.4 fL (7.4-10.4); Nucleated Red Blood Cells % 0 %; Platelet Count 359 10^3/uL (130-400); Red Cell Dist. Width 14.5 % (11.5-14.5)
[2024-01-24 07:11] LABS: ALT (SGPT) 55 U/L (0-35); AST (SGOT) 31 U/L (14-36); Albumin 3.9 g/dl (3.5-5.0); Alkaline Phosphatase 116 U/L (38-126); Blood Urea Nitrogen 23 mg/dl (7-17); Carbon Dioxide 27 mmol/L (22-30); Chloride 100 mmol/L (98-107); Estimated Creatinine Clearance 99 ml/min; Glucose 197 mg/dl (70-99); Potassium 4.2 mmol/L (3.5-5.1); Sodium 140 mmol/L (135-145); Total Bilirubin 0.7 mg/dl (0.2-1.3); Total Protein 7.9 g/dl (6.3-8.2); eGFR > 60.00
[2024-01-24 07:20] VITALS: BP 149/66
[2024-01-24 07:23] LABS: Glucose - Point of Care 206 mg/dl (70-99)
[2024-01-24] MEDS: ADVAIR HFA 115/21 MCG INHALER 2 PUFF INH ×2 (07:30→17:55)
[2024-01-24] MEDS: MIRALAX 17 GRAMS PO (07:57)
[2024-01-24] MEDS: SEROQUEL 12.5 MG PO ×2 (07:58→20:26)
[2024-01-24] MEDS: HEPARIN 5000 UNITS SC ×2 (07:59→20:25)
[2024-01-24] MEDS: CLARITIN 10 MG PO (07:59)
[2024-01-24] MEDS: DIFLUCAN 200 MG PO (08:00)
[2024-01-24] MEDS: NEURONTIN 800 MG PO ×4 (08:00→21:31)
[2024-01-24] MEDS: NORVASC 10 MG PO (08:00)
[2024-01-24] MEDS: PLAVIX 75 MG PO (08:00)
[2024-01-24] MEDS: COLACE 100 MG PO ×2 (08:01→20:25)
[2024-01-24] MEDS: REFRESH EYE DROPS (PF) 1 DROPS BOTH EYES ×3 (08:01→21:33)
[2024-01-24] MEDS: LIORESAL 10 MG PO ×3 (08:01→21:31)
[2024-01-24] MEDS: VITAMIN D3 (cholecalciferol) 50 MCG PO (08:01)
[2024-01-24] MEDS: SENOKOT-S 2 TABLET PO (08:01)
[2024-01-24] MEDS: DESENEX/MITRAZOL/ZEASORB 1 APPLIC TOPICAL ×2 (08:02→20:30)
[2024-01-24] MEDS: LANTUS SC ×2 (08:02→09:56)
--- NOTE | 2024-01-24 08:02 | W.PN.HOSP.TC ---
Today's Communication/Plan
-
Symptomatic constipation -- ordered Dulcolax suppository and continue Miralax and Senokot-S
Continue Fluconazole -- monitor QTc, patient still with urinary symptoms, await urine culture sensitivities
Assessment / Plan
Assessment / Plan
Physical Exam
General: Well Developed and No Apparent Distress
HEENT: Normocephalic, Atraumatic and Moist Mucous Membranes
Respiratory: Clear to Auscultation Bilaterally
Cardiac: Regular Rhythm and S1/S2
GI: Soft, Nondistended and Normal Bowel Sounds. Tender to palpation.
Musculoskeletal: No Cyanosis and No Edema
Skin: Warm. Dry.
Neuro: Other (Left hemiparesis)
Impression:
Complicated UTI associated with urinary retention.
Hyperkalemia secondary to Bactrim and lisinopril.
Reported vaginal yeast infection
Multiple antibiotics allergies
Constipation
Hypertensive urgency secondary to pain.
Transaminitis in the settings of acute infection
Conditions prior to admission:
Status post CVA with left hemiparesis
IDDM.
Diabetic neuropathy.
Chronic pain requiring opiates.
Essential hypertension.
History of uterine carcinoma status post hysterectomy and bilateral salpingo-oophorectomy.
Anxiety/depression
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
[facility] resident
Plan:
UTI complicated with urinary retention, urinary incontinence
Bladder scan in the ED 400 cc requiring straight catheterization
CT scan of the abdomen and pelvis shows urinary bladder wall thickening likely cystitis without calculus or dilatation present.
Continue bladder scan for retention
Bowel regimen avoiding constipation
-As of 01/24/24, patient's nurse reported that patient has not had a bowel movement in the previous 4 days, based on review it appears that patient refused her bowel regimen a few times
-Given abdominal tenderness and nausea (suspected from constipation), ordered an abdominal x-ray on 01/24/24 which showed moderate volume colonic stool, with nonobstructive bowel gas pattern
-Will order Dulcolax suppository and encourage compliance with bowel regimen
Patient still with UTI symptoms. Urine culture with yeast -- discussed with microbiology on 01/24/24 and they are now working on identification and sensitivities.
Continue fluconazole
Discontinue aztreonam
Continue Pyridium
Candidal vaginitis reported prior to admission
Hold boric acid
Continue fluconazole -- QTc in the 490s as of 01/24/24, continue to monitor QTc
Hypertensive urgency likely secondary to pain.
Patient reports excruciating back pain and says PO Dilaudid not working. Analgesic regimen changed back to IV Dilaudid for now per patient's request.
Persistent chest pain since admission.
Exam with diffuse reproducible pain all over the chest.
EKG with no ischemia
Negative cardiac markers
Mildly elevated pro CHF BNP, although echocardiogram with preserved biventricular function LVEF of 60 to 65% and clinically with no evidence of volume overload.
Lower extremity Doppler negative for DVT.
VQ scan low probability for PE
Hyperkalemia secondary to combination of Bactrim and lisinopril.
Hold lisinopril
Hold Bactrim.
Continue Lokelma 10 mg twice daily
Follow BMP -- potassium normal today
Transaminitis in the settings of acute infection
AST, ALT improving
Monitor closely
Ultrasound of the abdomen with no acute hepatobiliary abnormalities
Type 2 diabetes/IDDM with hyperglycemia likely triggered by acute infection.
Continue Lantus/aspart adjusting dose with insulin basal bolus protocol.
Patient refused 32 units of Lantus on the morning of 01/24/24 saying she is worried about hypoglycemia because she did not eat well on 01/24/24 morning -- reduced dose Lantus which patient agreed to
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
-Continue statin
-Continue Plavix
Left sided neuropathy
-Continue nortriptyline, Dilaudid, gabapentin, baclofen
Essential hypertension
-Continue amlodipine increasing dose to 10 mg daily
-Hold lisinopril
History of uterine cancer status post hysterectomy
Anxiety/depression
-Continue Seroquel
Chronic pain syndrome with opiate dependence.
Patient requesting IV hydromorphone in addition to already ordered maintenance regimen with oral hydromorphone
No evidence for distress.
Mild reproducible chest pain musculoskeletal.
Found to be over sedated on multiple occasions per
Resume IV hydromorphone for today
Continue preadmission regimen including Neurontin 800 mg p.o. 4 times daily, Pamelor, baclofen. Will plan to stop IV hydromorphone and resume oral hydromorphone 2 mg p.o. every 8 hours as needed, soon.
Monitor for oversedation.
Full code
DVT prophylaxis�heparin
Diabetic diet
Anticipated Discharge: Today
Subjective/Interval History
-
Date of Service: January 24, 2024
Patient was seen and examined. She reported abdominal tenderness today in addition to her chronic back pain. She still reports dysuria, suprapubic pain.
Objective Data
-
Labs:
Laboratory Results
01/24/24
06:13
WBC 16.0 H
Hgb 13.4
Hct 41.3
Plt Count 359
Sodium 140
Potassium 4.2 D
Chloride 100
Carbon Dioxide 27
BUN 23 H
Creatinine 0.6
Glucose 197 H
Calcium 10.0
Total Bilirubin 0.7
AST 31
ALT 55 H
Alkaline Phosphatase 116
Vital Signs:
Vital Signs
Temp Pulse Resp BP Pulse Ox
98 F 79 18 152/68 96
01/23/24 23:39 01/24/24 07:32 01/24/24 07:32 01/23/24 23:39 01/24/24 07:32
I&O
01/23/24 01/24/24 01/25/24
06:59 06:59 06:59
Intake Total 420 / 420 490 / 490
Output Total 40 / 40
Balance 380 / 380 490 / 490
[2024-01-24] MEDS: PHENERGAN 12.5 MG PO ×2 (08:22→16:36)
[2024-01-24 09:35] LABS: Glucose - Point of Care 259 mg/dl (70-99)
[2024-01-24] MEDS: NOVOLOG FLEXPEN SC ×3 (09:44→17:36)
[2024-01-24] MEDS: NOVOLOG FLEXPEN-MODERATE RESISTANCE 5 UNITS SC (09:46)
[2024-01-24] MEDS: DILAUDID 0.25 MG IV ×2 (10:25→20:45)
[2024-01-24 11:53] LABS: Glucose - Point of Care 207 mg/dl (70-99)
[2024-01-24] MEDS: NOVOLOG FLEXPEN-MODERATE RESISTANCE 3 UNITS SC ×2 (12:03→17:36)
[2024-01-24] MEDS: LANTUS 0.1 UNITS SC (12:15)
[2024-01-24] MEDS: DULCOLAX 10 MG RECTAL (14:08)
[2024-01-24 15:13] VITALS: BP 122/51
[2024-01-24 16:47] LABS: Glucose - Point of Care 241 mg/dl (70-99)
[2024-01-24] MEDS: LANTUS 0.16 UNITS SC (20:49)
[2024-01-24 20:50] LABS: Glucose - Point of Care 253 mg/dl (70-99)
[2024-01-24 21:30] LABS: Glucose - Point of Care 208 mg/dl (70-99)
[2024-01-24] MEDS: PEPCID 20 MG PO (21:31)
[2024-01-24] MEDS: ESTRACE 0.01% VAGINAL CREAM 1 APPLIC VAG (21:31)
[2024-01-24] MEDS: LIPITOR 80 MG PO (21:31)
[2024-01-24] MEDS: MELATONIN 6 MG PO (21:32)
[2024-01-24 23:00] VITALS: BP 98/44
[2024-01-25] MEDS: DILAUDID 0.25 MG IV (05:34)
[2024-01-25 06:57] LABS: % Basophils 1.3 % (0-2); % Eosinophils 2.6 % (0-6); % Immature Granulocytes 0.3 % (0-0.5); % Lymphocytes 35.9 % (20.5-51.1); % Monocytes 10.1 % (1.7-9.3); % Neutrophils 49.8 % (42.2-75.2); Absolute Basophils 0.2 10^3/uL (0-0.2); Absolute Eosinophils 0.3 10^3/uL (0-0.7); Absolute Lymphocytes 4.6 10^3/uL (1.2-3.4); Absolute Monocytes 1.3 10^3/uL (0.1-0.6); Absolute Neutrophils 6.3 10^3/uL (1.4-6.5); Hematocrit 36.4 % (37.0-47.0); Hemoglobin 11.8 g/dL (12.0-16.0); Mean Corp Hgb Conc. 32.4 g/dL (33.0-37.0); Mean Corpuscular Hgb 28.4 pg (27.0-31.0); Mean Corpuscular Volume 87.5 fL (81.0-99.0); Mean Platelet Volume 10.9 fL (7.4-10.4); Nucleated Red Blood Cells % 0 %; Platelet Count 308 10^3/uL (130-400); Red Blood Cell Count 4.16 10^6/uL (4.20-5.40); Red Cell Dist. Width 14.5 % (11.5-14.5); White Blood Cell Count 12.7 10^3/uL (4.8-10.8)
[2024-01-25 07:17] LABS: ALT (SGPT) 43 U/L (0-35); AST (SGOT) 31 U/L (14-36); Albumin 3.5 g/dl (3.5-5.0); Alkaline Phosphatase 98 U/L (38-126); Blood Urea Nitrogen 36 mg/dl (7-17); Calcium 9.1 mg/dl (8.4-10.2); Carbon Dioxide 26 mmol/L (22-30); Chloride 99 mmol/L (98-107); Estimated Creatinine Clearance 66 ml/min; Glucose 110 mg/dl (70-99); Magnesium 1.9 mg/dl (1.6-2.3); Potassium 3.8 mmol/L (3.5-5.1); Sodium 140 mmol/L (135-145); Total Bilirubin 0.5 mg/dl (0.2-1.3); Total Protein 7.3 g/dl (6.3-8.2); eGFR > 60.00
[2024-01-25] MEDS: HEPARIN 5000 UNITS SC ×2 (07:28→20:30)
[2024-01-25] MEDS: MIRALAX 17 GRAMS PO (07:29)
[2024-01-25] MEDS: SEROQUEL 12.5 MG PO ×2 (07:29→20:35)
[2024-01-25 07:30] VITALS: BP 108/41
[2024-01-25] MEDS: DIFLUCAN 200 MG PO (07:30)
[2024-01-25] MEDS: CLARITIN 10 MG PO (07:30)
[2024-01-25] MEDS: NEURONTIN 800 MG PO ×4 (07:30→21:43)
[2024-01-25] MEDS: NORVASC 10 MG PO (07:30)
[2024-01-25] MEDS: PLAVIX 75 MG PO (07:30)
[2024-01-25] MEDS: SENOKOT-S 2 TABLET PO (07:30)
[2024-01-25] MEDS: LIORESAL 10 MG PO ×2 (07:30→21:43)
[2024-01-25] MEDS: REFRESH EYE DROPS (PF) 1 DROPS BOTH EYES ×2 (07:31→15:26)
[2024-01-25] MEDS: VITAMIN D3 (cholecalciferol) 50 MCG PO (07:31)
[2024-01-25] MEDS: PHENERGAN 12.5 MG PO (07:31)
[2024-01-25] MEDS: COLACE 100 MG PO ×2 (07:31→20:29)
[2024-01-25] MEDS: DESENEX/MITRAZOL/ZEASORB 1 APPLIC TOPICAL ×2 (07:32→20:30)
[2024-01-25 07:38] LABS: Glucose - Point of Care 112 mg/dl (70-99)
[2024-01-25] MEDS: ADVAIR HFA 115/21 MCG INHALER 2 PUFF INH ×2 (07:50→18:26)
--- NOTE | 2024-01-25 07:55 | W.PN.HOSP.TC ---
Today's Communication/Plan
-
Patient still with significant dysuria, should encourage to take Pyridium
Awaiting identification and sensitivities of yeast in microbiology results
Continue Fluconazole in the meantime -- QTc stable in the 490s
Had bowel movement yesterday with improvement in nausea and abdominal pain
Assessment / Plan
Assessment / Plan
Physical Exam
General: Well Developed and No Apparent Distress
HEENT: Normocephalic, Atraumatic and Moist Mucous Membranes
Respiratory: Clear to Auscultation Bilaterally
Cardiac: Regular Rhythm and S1/S2
GI: Soft, Nondistended and Normal Bowel Sounds. Mildly tender to palpation.
Musculoskeletal: No Cyanosis and No Edema
Skin: Warm. Dry.
Neuro: Other (Left hemiparesis)
Impression:
Complicated UTI associated with urinary retention.
Hyperkalemia secondary to Bactrim and lisinopril.
Reported vaginal yeast infection
Multiple antibiotics allergies
Constipation
Hypertensive urgency secondary to pain.
Hypotension
Transaminitis in the settings of acute infection
Conditions prior to admission:
Status post CVA with left hemiparesis
IDDM.
Diabetic neuropathy.
Chronic pain requiring opiates.
Essential hypertension.
History of uterine carcinoma status post hysterectomy and bilateral salpingo-oophorectomy.
Anxiety/depression
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
long term resident
Plan:
UTI complicated with urinary retention, urinary incontinence
Bladder scan in the ED 400 cc requiring straight catheterization
CT scan of the abdomen and pelvis shows urinary bladder wall thickening likely cystitis without calculus or dilatation present.
Continue bladder scan for retention
Bowel regimen avoiding constipation
-As of 01/24/24, patient's nurse reported that patient has not had a bowel movement in the previous 4 days, based on review it appears that patient refused her bowel regimen a few times
-On 01/25/24, given abdominal tenderness and nausea (suspected from constipation), ordered an abdominal x-ray on 01/24/24 which showed moderate volume colonic stool, with nonobstructive bowel gas pattern
-Ordered Dulcolax suppository on 01/24/24, with resulting moderate to large, formed, solid brown bowel movement
-Encouraged patient to comply with all of her medications, including bowel regimen medications
Patient is still with UTI symptoms including significant dysuria.
Urine culture with yeast as preliminary result -- discussed with microbiology on 01/24/24 and 01/25/24 and they are working on identification and sensitivities.
Continue fluconazole for now
Discontinue aztreonam
Continue Pyridium
Candidal vaginitis reported prior to admission
Hold boric acid
Continue fluconazole -- QTc stable in the 490s as of 01/25/24, continue to monitor QTc
Hypertensive urgency likely secondary to pain.
Patient's pain has improved, will stop IV Dilaudid and plan to switch back to oral Dilaudid. Will try to hold narcotic pain medications as much as possible due to hypotension -- discussed this with patient's nurse on 01/25/24 who mentioned she will
hold the PO Dilaudid -- and if needs to be resumed due to patient's pain, it can be resumed later.
Persistent chest pain since admission -- now improved
Exam with diffuse reproducible pain all over the chest.
EKG with no ischemia
Negative cardiac markers
Mildly elevated pro CHF BNP, although echocardiogram with preserved biventricular function LVEF of 60 to 65% and clinically with no evidence of volume overload.
Lower extremity Doppler negative for DVT.
VQ scan low probability for PE
Hyperkalemia secondary to combination of Bactrim and lisinopril.
Hold lisinopril
Hold Bactrim.
Completed Lokelma 10 mg twice daily
Follow BMP -- potassium remains normal today
Transaminitis in the settings of acute infection
AST, ALT improved significantly: AST normal and ALT almost normal
Monitor closely
Ultrasound of the abdomen with no acute hepatobiliary abnormalities
Type 2 diabetes/IDDM with hyperglycemia likely triggered by acute infection.
Continue Lantus/aspart adjusting dose with insulin basal bolus protocol.
Patient refused 32 units of Lantus on the morning of 01/24/24 and continues to refuse 32 units Lantus Insulin, saying she is worried about hypoglycemia; patient said she is okay with 16 units Lantus and okay with current premeal Insulin -- reduced
Lantus dosing to 16 units and will continue to monitor Insulin and adjust as needed.
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
-Continue statin
-Continue Plavix
Left sided neuropathy
-Continue nortriptyline, Dilaudid, gabapentin, baclofen
Essential hypertension
-Continue amlodipine (with hold parameters) of the increased dose of 10 mg daily -- but given patient's soft blood pressures need to be careful with BP meds as well as narcotic pain meds above
-Hold lisinopril
History of uterine cancer status post hysterectomy
Anxiety/depression
-Continue Seroquel
Chronic pain syndrome with opiate dependence.
Patient requesting IV hydromorphone in addition to already ordered maintenance regimen with oral hydromorphone
No evidence for distress.
Mild reproducible chest pain musculoskeletal.
Found to be over sedated on multiple occasions per
Resume IV hydromorphone for today
Continue preadmission regimen including Neurontin 800 mg p.o. 4 times daily, Pamelor, baclofen. Dilaudid can be resumed when needed.
Monitor for oversedation.
Full code
DVT prophylaxis�heparin
Diabetic diet
Anticipated Discharge: 24 - 48 hours
Subjective/Interval History
-
Date of Service: January 25, 2024
Patient was seen and examined. She had a moderate to large soft brown bowel movement yesterday, her nausea is better and her abdominal pain is better. She reports that she has significant dysuria still.
Objective Data
-
Labs:
Laboratory Results
01/25/24
06:27
WBC 12.7 H
Hgb 11.8 L
Hct 36.4 L
Plt Count 308
Sodium 140
Potassium 3.8
Chloride 99
Carbon Dioxide 26
BUN 36 H
Creatinine 0.9
Glucose 110 H
Calcium 9.1
Total Bilirubin 0.5
AST 31
ALT 43 H
Alkaline Phosphatase 98
Vital Signs:
Vital Signs
Temp Pulse Resp BP Pulse Ox
97.9 F 74 16 98/44 96
01/24/24 23:00 01/25/24 07:53 01/25/24 07:53 01/24/24 23:00 01/25/24 07:53
I&O
01/24/24 01/25/24 01/26/24
06:59 06:59 06:59
Intake Total 490 / 490 580 / 580
Balance 490 / 490 580 / 580
[2024-01-25 08:47] VITALS: BP 95/46
[2024-01-25] MEDS: NOVOLOG FLEXPEN SC ×3 (08:48→17:01)
[2024-01-25] MEDS: NOVOLOG FLEXPEN-MODERATE RESISTANCE SC (08:52)
[2024-01-25] MEDS: LANTUS 0.16 UNITS SC ×2 (08:55→21:42)
[2024-01-25 08:56] LABS: Glucose - Point of Care 149 mg/dl (70-99)
[2024-01-25 11:39] LABS: Glucose - Point of Care 181 mg/dl (70-99)
[2024-01-25] MEDS: NOVOLOG FLEXPEN-MODERATE RESISTANCE 1 UNITS SC ×2 (13:11→17:02)
--- NOTE | 2024-01-25 14:25 | CM ---
Addendum entered by Briana Craft 01/25/24 16:02:
Call placed to Elizabeth in admissions and msg left indicating the below.
Original Note:
CM following re: d/c planning.
Pt requested to speak with CM, as she does not wish to return to [facility].
CM met with pt at bedside.
Pt reports she has been a LTC resident at [facility] for several years.
She has a MA bed hold in place.
CM confirmed there are no reports of abuse or neglect.
Pt denies this, but states she would like to go to another facility as she is unhappy with staffing and how long it takes for them to answer the call coats.
CM explained that MA LTC transfers can be a lengthy process and informed her we will not be able to send her to a new facility, while she is a LTC resident. CM advised that she return to [facility], and they can assist her with the transfer. Pt
states she is interested in [facility], [facility], [facility], [facility], and [facility] CM also explained that she would only be able to go to a SNF with MA beds available. She verbalized understanding. Pt aware she will have to return to
after hospitalization. CM will update admissions about her concerns and desire for transfer. She also inquired about CM's opinions regarding the SNFs she listed. ROSA explained CM cannot share opinions, but offered to provide her with SNF ratings, to
which she agreed. CM provided this info to pt, she verbalized appreciation.
Goal remains return to at d/c.
[2024-01-25 15:16] VITALS: BP 104/55
[2024-01-25] MEDS: LIORESAL PO (15:22)
--- NOTE | 2024-01-25 15:30 | PTCARENOTE ---
BP remains bordeline low, now at 104/55, pulse 83. Pt resting in bed, asymptomatic. Dr Knowles made aware. Afternoon dose of Lioresal held. Encouraged pt to increase PO water intake.
[2024-01-25 16:45] LABS: Glucose - Point of Care 167 mg/dl (70-99)
[2024-01-25 21:10] LABS: Glucose - Point of Care 279 mg/dl (70-99)
[2024-01-25] MEDS: REFRESH EYE DROPS (PF) BOTH EYES (21:43)
[2024-01-25] MEDS: PEPCID 20 MG PO (21:43)
[2024-01-25] MEDS: LIPITOR 80 MG PO (21:43)
[2024-01-25] MEDS: MELATONIN 6 MG PO (21:43)
[2024-01-25] MEDS: PAMELOR 25 MG PO (21:43)
[2024-01-25 23:45] VITALS: BP 109/55
[2024-01-26 07:30] VITALS: BP 121/53
[2024-01-26 07:30] LABS: Glucose - Point of Care 174 mg/dl (70-99)
[2024-01-26] MEDS: ADVAIR HFA 115/21 MCG INHALER 2 PUFF INH (07:47)
[2024-01-26] MEDS: NORVASC 10 MG PO (08:07)
[2024-01-26] MEDS: VITAMIN D3 (cholecalciferol) 50 MCG PO (08:07)
[2024-01-26] MEDS: SENOKOT-S 2 TABLET PO (08:07)
[2024-01-26] MEDS: CLARITIN 10 MG PO (08:08)
[2024-01-26] MEDS: HEPARIN 5000 UNITS SC (08:08)
[2024-01-26] MEDS: PLAVIX 75 MG PO (08:08)
[2024-01-26] MEDS: REFRESH EYE DROPS (PF) 1 DROPS BOTH EYES ×2 (08:08→16:46)
[2024-01-26] MEDS: SEROQUEL 12.5 MG PO (08:08)
[2024-01-26] MEDS: MIRALAX 17 GRAMS PO (08:08)
[2024-01-26] MEDS: NEURONTIN 800 MG PO ×3 (08:08→17:02)
[2024-01-26] MEDS: DESENEX/MITRAZOL/ZEASORB 1 APPLIC TOPICAL (08:09)
[2024-01-26] MEDS: LIORESAL 10 MG PO ×2 (08:09→16:46)
[2024-01-26] MEDS: DIFLUCAN 200 MG PO (08:09)
[2024-01-26] MEDS: COLACE 100 MG PO (08:09)
[2024-01-26 08:10] LABS: % Basophils 1.3 % (0-2); % Eosinophils 3.3 % (0-6); % Immature Granulocytes 0.3 % (0-0.5); % Lymphocytes 33.5 % (20.5-51.1); % Monocytes 8.2 % (1.7-9.3); % Neutrophils 53.4 % (42.2-75.2); Absolute Basophils 0.1 10^3/uL (0-0.2); Absolute Eosinophils 0.3 10^3/uL (0-0.7); Absolute Lymphocytes 3.4 10^3/uL (1.2-3.4); Absolute Monocytes 0.8 10^3/uL (0.1-0.6); Absolute Neutrophils 5.5 10^3/uL (1.4-6.5); Hematocrit 37.3 % (37.0-47.0); Mean Corp Hgb Conc. 32.2 g/dL (33.0-37.0); Mean Corpuscular Hgb 28.2 pg (27.0-31.0); Mean Corpuscular Volume 87.6 fL (81.0-99.0); Mean Platelet Volume 11.2 fL (7.4-10.4); Nucleated Red Blood Cells % 0 %; Platelet Count 291 10^3/uL (130-400); Red Blood Cell Count 4.26 10^6/uL (4.20-5.40); Red Cell Dist. Width 14.3 % (11.5-14.5); White Blood Cell Count 10.2 10^3/uL (4.8-10.8)
[2024-01-26] MEDS: NOVOLOG FLEXPEN 10 UNITS SC ×3 (08:10→16:46)
[2024-01-26] MEDS: LANTUS 0.16 UNITS SC (08:10)
[2024-01-26] MEDS: NOVOLOG FLEXPEN-MODERATE RESISTANCE 1 UNITS SC ×2 (08:11→16:46)
[2024-01-26 08:36] LABS: ALT (SGPT) 41 U/L (0-35); AST (SGOT) 38 U/L (14-36); Albumin 3.6 g/dl (3.5-5.0); Alkaline Phosphatase 104 U/L (38-126); Blood Urea Nitrogen 32 mg/dl (7-17); Calcium 9.3 mg/dl (8.4-10.2); Carbon Dioxide 26 mmol/L (22-30); Chloride 99 mmol/L (98-107); Estimated Creatinine Clearance 99 ml/min; Glucose 170 mg/dl (70-99); Potassium 3.9 mmol/L (3.5-5.1); Sodium 139 mmol/L (135-145); Total Bilirubin 0.3 mg/dl (0.2-1.3); Total Protein 7.5 g/dl (6.3-8.2); eGFR > 60.00
--- NOTE | 2024-01-26 09:44 | CM ---
Addendum entered by Nuria Hinkle 01/26/24 15:17:
Patient to talk to son but understands that ambulance to be scheduled for 6pm to return to SNF, pending patient conversation with son. CM updated facility about return.
Addendum entered by Nuria Hinkle 01/26/24 14:59:
clarification son wanted patient to go back to the facility
Addendum entered by Nuria Hinkle 01/26/24 14:35:
Patient given IMM and patient declining to sign. Patient stated that she wanted to talk to her son and CM also spoke to son. IMM reviewed please call report to [email or web address]. Patient son indicated that he wanted patient to go home. Patient
for ambulance transportation and forms provided to patient. CM will continue to follow for discharge planning needs.
Addendum entered by Nuria Hinkle 01/26/24 11:45:
please call report to [phone]/fax [phone]. CM left VM for patient son and per admissions the facility will be meeting with patient today when she returns to review options for transfer in future.
Original Note:
Patient seen at bedside. CM will follow with [facility] and update admissions. CM will continue to follow for discharge planning needs.
Plan: SNF
--- NOTE | 2024-01-26 11:00 | W.DS.TRANS ---
DC Summary - Flour Mixer
-
Discharge Instructions:
Discharge Diagnosis/Procedures Impression:
Complicated UTI associated with urinary
retention.
Hyperkalemia secondary to Bactrim and lisinopril
.
Reported vaginal yeast infection
Multiple antibiotics allergies
Constipation
Hypertensive urgency secondary to pain.
Transaminitis in the settings of acute infection
Conditions prior to admission:
Status post CVA with left hemiparesis
IDDM.
Diabetic neuropathy.
Chronic pain requiring opiates.
Essential hypertension.
History of uterine carcinoma status post
hysterectomy and bilateral salpingo-oophorectomy
.
Anxiety/depression
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
hemiparesis (bed/wheelchair ridden)
[facility] resident
Diet Diabetic, Carb Controlled
Instructions:
Stand-Alone Forms:
Changes to Home Medications: Yes
Discharge Medications:
DC Medications w/original date entered in [facility]
acetaminophen 325 mg tablet (Tylenol) 650 mg PO Q4HPRN PRN mild pain/temp >100 01/21/24
aluminum-mag hydroxide-simethicone 400 mg-400 mg-40 mg/5 mL oral susp (Maalox Maximum Strength) 30 ml PO Q4HPRN PRN indigestion 01/21/24
atorvastatin 80 mg tablet 80 mg PO HS High Cholesterol 01/21/24
baclofen 10 mg tablet 10 mg PO TID Muscle Spasms 01/21/24
benzocaine 15 mg-menthol 3.6 mg lozenges (Cepacol Sore Throat (benzocaine-menthol)) 1 shade mucous membrane Q6HPRN PRN sore throat 01/21/24
bisacodyl 10 mg rectal suppository (Dulcolax (bisacodyl)) 10 mg WV DAILYPRN PRN if mom ineffective after 24 hours 01/21/24
boric acid 600 mg vaginal suppository 600 mg vaginal HS Urinary Issue 01/21/24
calcium carbonate 500 mg PO Q6HPRN PRN indigestion 01/21/24
cholecalciferol (vitamin D3) 50 mcg (2,000 unit) tablet (Vitamin D3) 50 mcg PO DAILY Supplement 01/21/24
clopidogrel 75 mg tablet 75 mg PO DAILY Blood Clot Prevention/Tx 01/21/24
d-mannose 500 mg capsule 500 mg PO DAILY Supplement 01/21/24
docusate sodium 100 mg capsule 100 mg PO BID Constipation 01/21/24
estradiol 0.01% (0.1 mg/gram) vaginal cream 2 g vaginal Q48H Hormonal Agent 01/21/24
famotidine 20 mg tablet 20 mg PO HS Gastrointestinal Issue 01/21/24
fluticasone 250 mcg-salmeterol 50 mcg/dose blistr powdr for inhalation (Advair Diskus) 1 inh inhalation R BID Lung/Breathing Issues 01/21/24
fluticasone propionate 50 mcg/actuation nasal spray,suspension 2 spray intranasal DAILY Allergies 01/21/24
gabapentin 800 mg tablet 800 mg PO QID Neurological Condition 01/21/24
guaifenesin 100 mg/5 mL oral liquid 100 mg PO Q4HPRN PRN cough 01/21/24
insulin aspart U-100 100 unit/mL subcutaneous solution 10 unit SC MEALS Diabetes 01/21/24
insulin glargine 100 unit/mL (3 mL) subcutaneous pen (Lantus Solostar U-100 Insulin) 32 unit SC BID Diabetes 01/21/24
ipratropium 0.5 mg-albuterol 3 mg (2.5 mg base)/3 mL nebulization soln 3 ml inhalation R Q6HPRN PRN sob 01/21/24
loratadine 10 mg tablet (Claritin) 10 mg PO DAILY Allergies 01/21/24
magnesium hydroxide 400 mg/5 mL oral suspension (Milk of Magnesia) 30 ml PO [id number] PRN no bm 3 days 01/21/24
melatonin 3 mg tablet 6 mg PO HS Sleep 01/21/24
nortriptyline 25 mg capsule 25 mg PO Q48H Mental Health/Anxiety 01/21/24
omega-3 fatty acids 1,000 mg capsule 1,000 mg PO DAILY Supplement 01/21/24
peg 400-propylene glycol 0.4 %-0.3 % eye drops (Systane Ultra) 1 drp BOTH EYES TID Eye Condition 01/21/24
phenazopyridine 100 mg tablet 100 mg PO TIDPRN PRN bladder pain 01/21/24
polyethylene glycol 3350 17 gram oral powder packet (Miralax) 17 g PO DAILYPRN PRN constipation 01/21/24
quetiapine 25 mg tablet 12.5 mg PO BID Mental Health/Anxiety 01/21/24
sennosides 8.6 mg-docusate sodium 50 mg tablet 2 tab-cap PO DAILY Constipation 01/21/24
sodium phosphates 19 gram-7 gram/118 mL enema (Fleet Enema) 118 ml WV DAILYPRN PRN if dulcolax ineffective aftr 24 hours 01/21/24
amlodipine 10 mg tablet 10 mg PO DAILY #30 tabs 01/26/24
fluconazole 200 mg tablet 200 mg PO DAILY #3 tabs 01/26/24
hydromorphone 2 mg tablet 2 mg PO [id number] PRN severe pain #15 tabs 01/26/24
Home Medication Changes
Lisinopril stopped due to hyperkalemia.
Pending Results: No
[2024-01-26 11:39] LABS: Glucose - Point of Care 224 mg/dl (70-99)
[2024-01-26] MEDS: NOVOLOG FLEXPEN-MODERATE RESISTANCE 3 UNITS SC (12:12)
--- NOTE | 2024-01-26 14:55 | W.PN.HOSP.TC ---
Today's Communication/Plan
-
Afebrile
Chronic urinary symptoms
Urine culture with Deja glabrata most likely contaminant from recent yeast vaginitis. Urinalysis is not indicative of a yeast infection.
Normalized white count.
Hyperkalemia improved.
Comfortable on current analgesic regimen, although complains of chronic diffuse pain occasionally requesting IV narcotics, although found to be extremely sedated on multiple occasions.
Medically optimized for discharge to long-term facility.
Assessment / Plan
Assessment / Plan
Impression:
Complicated UTI associated with urinary retention.
Hyperkalemia secondary to Bactrim and lisinopril.
Reported vaginal yeast infection
Multiple antibiotics allergies
Constipation
Hypertensive urgency secondary to pain.
Hypotension
Transaminitis in the settings of acute infection
Conditions prior to admission:
Status post CVA with left hemiparesis
IDDM.
Diabetic neuropathy.
Chronic pain requiring opiates.
Essential hypertension.
History of uterine carcinoma status post hysterectomy and bilateral salpingo-oophorectomy.
Anxiety/depression
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
retirement resident
Plan:
Initial concern for UTI complicated with urinary retention, urinary incontinence.
Bacterial UTI ruled out
Sepsis ruled out
Bladder scan in the ED 400 cc requiring straight catheterization
CT scan of the abdomen and pelvis shows urinary bladder wall thickening likely cystitis without calculus or dilatation present.
Continue bladder scan for retention
Bowel regimen avoiding constipation
-As of 01/24/24, patient's nurse reported that patient has not had a bowel movement in the previous 4 days, based on review it appears that patient refused her bowel regimen a few times
-On 01/25/24, given abdominal tenderness and nausea (suspected from constipation), ordered an abdominal x-ray on 01/24/24 which showed moderate volume colonic stool, with nonobstructive bowel gas pattern
-Ordered Dulcolax suppository on 01/24/24, with resulting moderate to large, formed, solid brown bowel movement
-Encouraged patient to comply with all of her medications, including bowel regimen medications
Patient is still with UTI symptoms including significant dysuria.
Urine culture with yeast as preliminary result most likely contaminant with recent candidal vaginitis
Continue fluconazole for additional 3 days through 01/27
Has been off antibacterial coverage since 01/22
Continue Pyridium
Candidal vaginitis reported prior to admission
Hold boric acid
Continue fluconazole -- QTc stable in the 490s as of 01/25/24, continue to monitor QTc
Hypertensive urgency likely secondary to pain.
Patient's pain has improved, will stop IV Dilaudid and plan to switch back to oral Dilaudid. Will try to hold narcotic pain medications as much as possible due to hypotension -- discussed this with patient's nurse on 01/25/24 who mentioned she will
hold the PO Dilaudid -- and if needs to be resumed due to patient's pain, it can be resumed later.
Persistent chest pain since admission -- now improved
Exam with diffuse reproducible pain all over the chest.
EKG with no ischemia
Negative cardiac markers
Mildly elevated pro CHF BNP, although echocardiogram with preserved biventricular function LVEF of 60 to 65% and clinically with no evidence of volume overload.
Lower extremity Doppler negative for DVT.
VQ scan low probability for PE
Hyperkalemia secondary to combination of Bactrim and lisinopril.
Hold lisinopril
Hold Bactrim.
Completed Lokelma 10 mg twice daily
Potassium improved
Transaminitis in the settings of acute infection
AST, ALT improved significantly: AST normal and ALT almost normal
Monitor closely
Ultrasound of the abdomen with no acute hepatobiliary abnormalities
Type 2 diabetes/IDDM with hyperglycemia likely triggered by acute infection.
Continue Lantus/aspart adjusting dose with insulin basal bolus protocol.
Patient refused 32 units of Lantus on the morning of 01/24/24 and continues to refuse 32 units Lantus Insulin, saying she is worried about hypoglycemia; patient said she is okay with 16 units Lantus and okay with current premeal Insulin -- reduced
Lantus dosing to 16 units and will continue to monitor Insulin and adjust as needed.
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
-Continue statin
-Continue Plavix
Left sided neuropathy
-Continue nortriptyline, Dilaudid, gabapentin, baclofen
Essential hypertension
-Continue amlodipine (with hold parameters) of the increased dose of 10 mg daily -- but given patient's soft blood pressures need to be careful with BP meds as well as narcotic pain meds above
-Hold lisinopril
History of uterine cancer status post hysterectomy
Anxiety/depression
-Continue Seroquel
Chronic pain syndrome with opiate dependence.
Patient requesting IV hydromorphone in addition to already ordered maintenance regimen with oral hydromorphone
No evidence for distress.
Mild reproducible chest pain musculoskeletal.
Found to be over sedated on multiple occasions per
Resume IV hydromorphone for today
Continue preadmission regimen including Neurontin 800 mg p.o. 4 times daily, Pamelor, baclofen. Dilaudid can be resumed when needed.
Monitor for oversedation.
Full code
DVT prophylaxis�heparin
Diabetic diet
Anticipated Discharge: Today
Subjective/Interval History
-
Date of Service: January 26, 2024
Objective Data
-
Labs:
Laboratory Results
01/26/24
07:09
WBC 10.2
Hgb 12.0
Hct 37.3
Plt Count 291
Sodium 139
Potassium 3.9
Chloride 99
Carbon Dioxide 26
BUN 32 H
Creatinine 0.6
Glucose 170 H
Calcium 9.3
Total Bilirubin 0.3
AST 38 H
ALT 41 H
Alkaline Phosphatase 104
Vital Signs:
Vital Signs
Temp Pulse Resp BP Pulse Ox
97.7 F 77 16 121/53 98
01/26/24 07:30 01/26/24 08:07 01/26/24 07:50 01/26/24 08:07 01/26/24 07:50
I&O
01/25/24 01/26/24 01/27/24
06:59 06:59 06:59
Intake Total 580 / 580 1250 / 1250
Balance 580 / 580 1250 / 1250
Physical Exam
-
General: Well Developed and No Apparent Distress
HEENT: Normocephalic, Atraumatic and Moist Mucous Membranes
Respiratory: Clear to Auscultation
Cardiac: Regular Rhythm and S1/S2; Negative Murmur, Rub or Gallop
GI: Soft, Nontender, Nondistended and Normal Bowel Sounds; Negative Organomegaly
Rectal: Deferred by Provider
Musculoskeletal: No Clubbing, No Cyanosis and No Edema
Skin: Negative Rash
Neuro: Other (Left hemiparesis)
[2024-01-26 15:15] VITALS: BP 147/66
[2024-01-26 16:33] LABS: Glucose - Point of Care 171 mg/dl (70-99)
== END 2024-01-26 18:12 | DRG 758 ==
LOC: 4 EAST ACU 20:31
PROVIDERS: Hospitalist; Physician Assistant; ADMITTING PHYSICIAN Hospitalist; ATTENDING PHYSICIAN Internal Medicine; EMERGENCY PHYSICIAN Emergency Medicine; FAMILY PHYSICIAN Internal Medicine
DX: B37.31 Acute candidiasis of vulva and vagina (principal); F11.20 Opioid dependence, uncomplicated; I69.354 Hemiplegia and hemiparesis following cerebral infarction affecting left non-dominant side; E87.5 Hyperkalemia; T36.8X5A Adverse effect of other systemic antibiotics, initial encounter; T46.4X5A Adverse effect of angiotensin-converting-enzyme inhibitors, initial encounter; Z88.6 Allergy status to analgesic agent; Z88.1 Allergy status to other antibiotic agents; Z88.0 Allergy status to penicillin; Z85.42 Personal history of malignant neoplasm of other parts of uterus; Z87.440 Personal history of urinary (tract) infections; I10 Essential (primary) hypertension; Z90.710 Acquired absence of both cervix and uterus; E11.40 Type 2 diabetes mellitus with diabetic neuropathy, unspecified; F41.9 Anxiety disorder, unspecified; F32.A Depression, unspecified; J45.909 Unspecified asthma, uncomplicated; K59.00 Constipation, unspecified; I16.0 Hypertensive urgency; G89.29 Other chronic pain; Z79.4 Long term (current) use of insulin; Z79.02 Long term (current) use of antithrombotics/antiplatelets; M54.50 Low back pain, unspecified; Z11.52 Encounter for screening for COVID-19; R74.01 Elevation of levels of liver transaminase levels; I95.9 Hypotension, unspecified; E11.65 Type 2 diabetes mellitus with hyperglycemia
CPT/HCPCS: 51701; 51798; 71046; 74019; 74176; 76700; 78582; 80053; 81003; 81015; 82248; 82962; 83036; 83690; 83735; 83880; 84484; 85025; 85379; 87086; 87106; 87107; 87811; 93005; 93306; 93970; 94640; 96361; 96374; 96375; 99285; A9540; A9567; Q9950

== ENCOUNTER 2024-03-04 19:54 | Inpatient (IN) | payer MEDICARE, OTHER, SELFPAY ==
[2024-03-02] VITALS (7 sets, daily range): BP systolic 142–172; BP diastolic 59–72; BMI 30.2
[2024-03-02 22:35] LABS: Glucose - Point of Care 303 mg/dl (70-99)
[2024-03-03] VITALS (19 sets, daily range): BP systolic 117–182; BP diastolic 47–83
--- NOTE | 2024-03-03 02:52 | ED.GENMED ---
History of Present Illness
General
Chief Complaint: Urinary Symptoms
Source: patient
Exam Limitations: none
Time Seen by Provider: 03/03/24 02:15
History of Present Illness
History of Present Illness:
This is a 68 year old female that comes in by ambulance with c/o of a bladder infection. States that she has had a bladder infection and she feels that it has gotten worse. States that she has pain in the bladder today. States that she has had a
headache and that she is dizzy but this is normal for patient. States that she has urinary burning. Denies any fever, chills, chest pain, SOB, nausea, vomiting, diarrhea.
Past History
Past History
ED Past Medical History: Asthma, Cancer (Uterine cancer), CVA (Left sided paralysis), HTN, NIDDM, Psychiatric (Depression) and Other (Migraines, Neuropathy, Numbness arms and legs, IBS, UTI, Ulcer, Vertigo, )
ED Past Surgical History: Gynecological (Hysterectomy) and Tonsilectomy (and adenoids)
Social History
Tobacco: Former smoker
Alcohol: None
Personal:
Living: [facility]
Review of Systems
Review of Systems
All Other Systems: ROS reviewed and negative except as documented in HPI and ROS
Constitutional: Reports no symptoms; Denies fever or chills
EENT: Reports no symptoms
Respiratory: Reports no symptoms; Denies cough or trouble breathing
Cardiac: Reports no symptoms; Denies chest pain
ABD/GI: Reports abdominal pain; Denies nausea, vomiting or diarrhea
: Reports dysuria and other (Bladder pain)
Musculoskeletal: Reports no symptoms
Skin: Reports no symptoms
Neurological: Reports dizzy and headache
Psychiatric: Reports no symptoms
Phy Exam
General Physical Exam
General Presentation: no apparent distress
General age: appears older than age
General Skin: warm and dry
General Habitus: debilitated and elderly
General Mental: alert
General Hydration: appears well hydrated
ENT Exam
ENT Exam: TM's normal, pharynx normal and neck supple
Eye Exam
Eye Exam: EOMI
Cardiovascular Exam
Cardiovascular Exam: regular rate/rhythm, no edema and normal peripheral pulses
Pulmonary Exam
Pulmonary Exam: lungs clear, no respiratory distress, no rales, chest non tender, no crackles, no rhonchi, no wheezing and no cough
Gastrointestinal Exam
Gastrointestinal Exam: normal bowel sounds, non tender, soft, no organomegaly, no pulsatile mass and non distended
Musculoskeletal Exam
Musculoskeletal Exam: no edema and other (Left sided paralysis)
Skin Exam
Skin Exam: normal color, warm/dry, no rash and no petechia
Psychiatric Exam
Psychiatric Exam: normal mood/affect
Course
Orders/Labs/Results
Orders:
Orders
03/03/24 03:14
Urinalysis Reflex To Culture Urgent
Date Specimen was Collected: 03/03/24
Time Specimen was Collected: 03:09
Urine Microscopic Reflex Cult Urgent
Urine Culture Urgent
SRIDHAR Source: U
Specimen Description:
Date Specimen was Collected: 03/03/24
Time Specimen was Collected: 03:09
03/03/24 03:38
Complete Blood Count/With Diff Urgent
Comprehensive Metabolic Panel Urgent
Lactic Acid Urgent
03/03/24 03:46
Aztreonam [Azactam] 1,000 mg IV NOW STA
Abnormal Lab Results
03/02/24 03/03/24 03/03/24
22:33 03:14 03:38
WBC 11.2 H 10^3/uL
(4.8-10.8)
MPV 10.9 H fL
(7.4-10.4)
Absolute Monos (auto) 0.8 H 10^3/uL
(0.1-0.6)
Ur Occult Blood Reflex 3+ A
(Negative)
Urine Nitrite (Reflex) Positive A
(Negative)
Urine Bilirubin 1+ A
(Negative)
Urine Urobilinogen 2+ A
(Neg - 1+)
Leukocyte Esterase Rfl 2+ A
(Negative)
Urine WBC (Reflex) >100 A /HPF
(0-5)
Urine Bacteria (Reflex) Many A
(Negative)
Urine Glucose 3+ A
(Negative)
Urine Albumin (Reflex) 1+ A
(Neg - Trace)
POC Glucose 303 H mg/dl
(70-99)
03/03/24 03:38
Urine positive for infection. Leukocytosis,
Vital Signs
Initial and Last Documented VS:
Initial Vital Signs
Temp Pulse Resp BP Pulse Ox
98.7 F 91 14 142/70 98
03/02/24 21:30 03/02/24 21:30 03/02/24 21:30 03/02/24 21:30 03/02/24 21:30
Last Documented Vital Signs
Temp Pulse Resp BP Pulse Ox
98.7 F 78 17 151/64 100
03/02/24 21:30 03/03/24 03:37 03/03/24 03:37 03/03/24 03:37 03/03/24 03:37
MDM/Problems Addressed
Differential Diagnosis Includes:
Urinary tract infection,
MDM/Problems Addressed:
This is a 68 year old female that comes in by ambulance with c/o a urinary tract infection. State that she has had a bladder infection and she feels that it is getting worse. States that she has had pain all day.
Will check labs and get a urine. Told that patient does not like [facility] and doesn't want to be there.
Back into see patient. Explained that she does have a UTi. Will admit patient for IV antibiotics. Will notify hospitalist.
Chronic conditions affecting care:
History of UTi
Acute Exacerbation and/or Progression of Chronic Illness:
History of UTI
*Pulse Oximetry
Patient hypoxic: no
*EKG
Interpreted by ED Provider?: NA
Rate: EKG- N/A
*[employer] Photograph Interpretation
Rate: normal
Heart Rate: 78
Rhythm: sinus
*Critical Care Note
Total Time (30-74mins, 75-104mins- exclusive of procedures): Not Applicable
ED Attending Note
-
Portions of this chart may have been created with voice recognition software.� Occasional wrong word or��sound alike� substitutions may have occurred due to the inherent limitations of voice recognition software.
Discharge Plan
Departure
Patient Disposition: Admit
Date of Disposition: 03/03/24
Time of Disposition: 03:57
Admit to: Med/Surg
Presentation/result/management discussed w/ accepting MD/DO: Hospitalist
Patient with high blood pressure during this ER visit?: Yes
Condition: Good
Covid-19: Not Applicable
Discharge Problem:
Urinary tract infection
Prescriptions:
No Action
quetiapine 25 mg Tablet
12.5 mg PO BID
fluticasone propion-salmeterol [Advair Diskus] 250-50 mcg/dose Blister With Device
1 inh INHALATION R BID
atorvastatin 80 mg Tablet
80 mg PO HS
acetaminophen [Tylenol] 325 mg Tablet
650 mg PO Q4HPRN PRN (Reason: mild pain/temp >100)
ipratropium-albuterol 0.5 mg-3 mg(2.5 mg base)/3 mL Solution For Nebulization
3 ml INHALATION R Q6HPRN PRN (Reason: sob)
omega-3 fatty acids 1,000 mg Capsule
1,000 mg PO DAILY
polyethylene glycol 3350 [Miralax] 17 gram Powder In Packet
17 g PO DAILYPRN PRN (Reason: constipation)
sennosides-docusate sodium 8.6-50 mg Tablet
2 tab-cap PO DAILY
melatonin 3 mg Tablet
6 mg PO HS
clopidogrel 75 mg Tablet
75 mg PO DAILY
guaifenesin 100 mg/5 mL Liquid
100 mg PO Q4HPRN PRN (Reason: cough)
nortriptyline 25 mg Capsule
25 mg PO Q48H
famotidine 20 mg Tablet
20 mg PO HS
magnesium hydroxide [Milk of Magnesia] 400 mg/5 mL Suspension
30 ml PO [id number] PRN (Reason: no bm 3 days)
gabapentin 800 mg Tablet
800 mg PO QID
phenazopyridine 100 mg Tablet
100 mg PO TIDPRN PRN (Reason: bladder pain)
baclofen 10 mg Tablet
10 mg PO TID
insulin aspart U-100 100 unit/mL Solution
10 unit SC MEALS
bisacodyl [Dulcolax (bisacodyl)] 10 mg Suppository
10 mg LA DAILYPRN PRN (Reason: if mom ineffective after 24 hours)
Fleet Enema 19-7 gram/118 mL Enema
118 ml LA DAILYPRN PRN (Reason: if dulcolax ineffective aftr 24 hours)
docusate sodium 100 mg Capsule
100 mg PO BID
calcium carbonate 500 mg calcium (1,250 mg) Tablet,Chewable
500 mg PO Q6HPRN PRN (Reason: indigestion)
estradiol 0.01 % (0.1 mg/gram) Cream
2 g VAGINAL Q48H
fluticasone propionate 50 mcg/actuation Mcwilliams,Suspension
2 spray INTRANASAL DAILY
loratadine [Claritin] 10 mg Tablet
10 mg PO DAILY
alum-mag hydroxide-simeth [Maalox Maximum Strength] 400-400-40 mg/5 mL Suspension
30 ml PO Q4HPRN PRN (Reason: indigestion)
Systane Ultra 0.4-0.3 % Drops
1 drp BOTH EYES TID
insulin glargine [Lantus Solostar U-100 Insulin] 100 unit/mL (3 mL) Insulin Pen
32 unit SC BID
cholecalciferol (vitamin D3) [Vitamin D3] 50 mcg (2,000 unit) Tablet
50 mcg PO DAILY
Cepacol Sore Throat (petty-men) 15-3.6 mg Lozenge
1 shade MUCOUS MEMBRANE Q6HPRN PRN (Reason: sore throat)
d-mannose 500 mg Capsule
500 mg PO DAILY
boric acid 600 mg Suppository
600 mg VAGINAL HS
Patient Comments:
01/21/24: to take for 14 days, starting 01/16/24
fluconazole 200 mg Tablet
200 mg PO DAILY Qty: 3 0RF
amlodipine 10 mg Tablet
10 mg PO DAILY Qty: 30 0RF
hydromorphone 2 mg Tablet
2 mg PO [id number] PRN (Reason: severe pain) Qty: 15 0RF
Referrals:
Christophe Winters MD [Family Provider] -
Interventions
Interventions:
*Risk Screen - Suicide Last Done: 03/02/24 21:30
*General Assessment Last Done: 03/02/24 21:30
*Neglect/Abuse Screening Last Done: 03/02/24 21:30
ED- Fall Risk Assessment Last Done: 03/02/24 21:23
ED-Female Genitourinary Assessment Last Done: 03/02/24 21:23
Discharge Date and Time
Print Language: IRISH
[2024-03-03 03:22] LABS: Urine Albumin 1+ (Neg - Trace); Urine Bilirubin 1+ (Negative); Urine Glucose 3+ (Negative); Urine Ketone Negative (Negative); Urine Leukocyte 2+ (Negative); Urine Nitrite Positive (Negative); Urine Occult Blood 3+ (Negative); Urine Urobilinogen 2+ (Neg - 1+)
[2024-03-03 03:23] LABS: Urine Character Cloudy (Clear); Urine Color Orange
[2024-03-03 03:28] LABS: Urine Amorphous Seen; Urine Bacteria Many (Negative); Urine Mucus Many; Urine Squamous Cell >30 /LPF (Few); Urine White Cell >100 /HPF (0-5)
[2024-03-03 03:52] LABS: % Basophils 0.8 % (0-2); % Eosinophils 4.7 % (0-6); % Immature Granulocytes 0.4 % (0-0.5); % Lymphocytes 30.6 % (20.5-51.1); % Monocytes 6.7 % (1.7-9.3); % Neutrophils 56.8 % (42.2-75.2); Absolute Basophils 0.1 10^3/uL (0-0.2); Absolute Eosinophils 0.5 10^3/uL (0-0.7); Absolute Lymphocytes 3.4 10^3/uL (1.2-3.4); Absolute Monocytes 0.8 10^3/uL (0.1-0.6); Absolute Neutrophils 6.4 10^3/uL (1.4-6.5); Hematocrit 37.8 % (37.0-47.0); Hemoglobin 12.6 g/dL (12.0-16.0); Mean Corp Hgb Conc. 33.3 g/dL (33.0-37.0); Mean Corpuscular Hgb 28.2 pg (27.0-31.0); Mean Corpuscular Volume 84.6 fL (81.0-99.0); Mean Platelet Volume 10.9 fL (7.4-10.4); Nucleated Red Blood Cells % 0 %; Platelet Count 274 10^3/uL (130-400); Red Blood Cell Count 4.47 10^6/uL (4.20-5.40); Red Cell Dist. Width 13.7 % (11.5-14.5); White Blood Cell Count 11.2 10^3/uL (4.8-10.8)
[2024-03-03 04:01] LABS: Lactic Acid 1.8 mmol/L (0.7-2.0)
[2024-03-03 04:02] LABS: ALT (SGPT) 47 U/L (0-35); AST (SGOT) 30 U/L (14-36); Albumin 3.8 g/dl (3.5-5.0); Alkaline Phosphatase 167 U/L (38-126); Blood Urea Nitrogen 13 mg/dl (7-17); Calcium 9.2 mg/dl (8.4-10.2); Carbon Dioxide 29 mmol/L (22-30); Chloride 101 mmol/L (98-107); Estimated Creatinine Clearance 101 ml/min; Glucose 284 mg/dl (70-99); Potassium 3.6 mmol/L (3.5-5.1); Sodium 141 mmol/L (135-145); Total Bilirubin 0.3 mg/dl (0.2-1.3); Total Protein 7.5 g/dl (6.3-8.2); eGFR > 60.00
--- NOTE | 2024-03-03 05:43 | HPS.HSE ---
Family Physician
-
Family Physician: Christophe Winters
Chief Complaint
-
Dysuria, Abdominal Pain
History of Present Illness
Patient is a 68y F with PMH significant for ASCVD / prior CVA with residual L hemiparesis, HTN and DM-II who presents to ED complaining of burning with urination and intermittent lower abdominal pain. Patient states that her current symptoms
have been present for over one month. She was hospitalized here 01/20 - 01/25 for similar symptoms. Urine culture at that time showed fungal elements felt to be due to previously diagnosed / documented vaginal yeast infection. There was no
evidence of bacterial UTI. Patient states that her symptoms have never improved from that time. She has burning specifically with urination - no burning at rest / without urination.
She notes occasional lower abdominal discomfort. She states that the pain seems worse over the past week.
She denies any fevers / chills, flank pain, N/V/D or other symptoms.
Patient has been treated with a course of oral fluconazole as well as boric acid suppositories for her yeast infection. Despite this her symptoms persist.
Medical History
Past Medical History
Past Medical History: Reports Other
Additional Past Medical History:
ASCVD
CVA with Left Hemiparesis
Hypertension
DM-II with Neuropathy
Uterine Cancer s/p Hysterectomy
Chronic Pain Syndrome
Anxiety / Depression
Past Surgical History: Reports Other
Additional Past Surgical History:
Hysterectomy / BSO
Social History
Tobacco: Former Smoker
Alcohol: None
Drug: None
Family History
Family History: Not pertinent
Allergies / Home Medications
Allergies reflects when Allergies were last updated in [facility].
Home Medications with original date entered in [facility]
Allergy/Medication List:
Allergies
Allergy/AdvReac Type Severity Reaction Status Date / Time
aspirin Allergy Unknown Verified 01/21/24 17:19
azithromycin Allergy Unknown Verified 01/21/24 17:21
cefuroxime Allergy Unknown Verified 01/21/24 17:21
ciprofloxacin Allergy Unknown Verified 01/21/24 17:21
glimepiride Allergy Unknown Verified 01/21/24 17:21
Iodinated Contrast Media Allergy Unknown Verified 01/21/24 17:21
levofloxacin Allergy Unknown Verified 01/21/24 17:21
melon Allergy Unknown Verified 01/21/24 17:21
metformin Allergy Unknown Verified 01/21/24 17:21
Penicillins Allergy Unknown Verified 01/21/24 17:21
Home Medications
acetaminophen 325 mg tablet (Tylenol) 650 mg PO Q4HPRN PRN mild pain/temp >100 01/21/24
aluminum-mag hydroxide-simethicone 400 mg-400 mg-40 mg/5 mL oral susp (Maalox Maximum Strength) 30 ml PO Q4HPRN PRN indigestion 01/21/24
atorvastatin 80 mg tablet 80 mg PO HS High Cholesterol 01/21/24
baclofen 10 mg tablet 10 mg PO TID Muscle Spasms 01/21/24
benzocaine 15 mg-menthol 3.6 mg lozenges (Cepacol Sore Throat (benzocaine-menthol)) 1 shade mucous membrane Q6HPRN PRN sore throat 01/21/24
bisacodyl 10 mg rectal suppository (Dulcolax (bisacodyl)) 10 mg [place] DAILYPRN PRN if mom ineffective after 24 hours 01/21/24
boric acid 600 mg vaginal suppository 600 mg vaginal HS Urinary Issue 01/21/24
calcium carbonate 500 mg PO Q6HPRN PRN indigestion 01/21/24
cholecalciferol (vitamin D3) 50 mcg (2,000 unit) tablet (Vitamin D3) 50 mcg PO DAILY Supplement 01/21/24
clopidogrel 75 mg tablet 75 mg PO DAILY Blood Clot Prevention/Tx 01/21/24
d-mannose 500 mg capsule 500 mg PO DAILY Supplement 01/21/24
docusate sodium 100 mg capsule 100 mg PO BID Constipation 01/21/24
estradiol 0.01% (0.1 mg/gram) vaginal cream 2 g vaginal Q48H Hormonal Agent 01/21/24
famotidine 20 mg tablet 20 mg PO HS Gastrointestinal Issue 01/21/24
fluticasone 250 mcg-salmeterol 50 mcg/dose blistr powdr for inhalation (Advair Diskus) 1 inh inhalation R BID Lung/Breathing Issues 01/21/24
fluticasone propionate 50 mcg/actuation nasal spray,suspension 2 spray intranasal DAILY Allergies 01/21/24
gabapentin 800 mg tablet 800 mg PO QID Neurological Condition 01/21/24
guaifenesin 100 mg/5 mL oral liquid 100 mg PO Q4HPRN PRN cough 01/21/24
insulin aspart U-100 100 unit/mL subcutaneous solution 10 unit SC MEALS Diabetes 01/21/24
insulin glargine 100 unit/mL (3 mL) subcutaneous pen (Lantus Solostar U-100 Insulin) 33 unit SC BID Diabetes 01/21/24
ipratropium 0.5 mg-albuterol 3 mg (2.5 mg base)/3 mL nebulization soln 3 ml inhalation R Q6HPRN PRN sob 01/21/24
loratadine 10 mg tablet (Claritin) 10 mg PO DAILY Allergies 01/21/24
magnesium hydroxide 400 mg/5 mL oral suspension (Milk of Magnesia) 30 ml PO [id number] PRN no bm 3 days 01/21/24
melatonin 3 mg tablet 6 mg PO HS Sleep 01/21/24
nortriptyline 25 mg capsule 25 mg PO Q48H Mental Health/Anxiety 01/21/24
omega-3 fatty acids 1,000 mg capsule 1,000 mg PO DAILY Supplement 01/21/24
peg 400-propylene glycol 0.4 %-0.3 % eye drops (Systane Ultra) 1 drp BOTH EYES TID Eye Condition 01/21/24
phenazopyridine 100 mg tablet 100 mg PO TIDPRN PRN bladder pain 01/21/24
polyethylene glycol 3350 17 gram oral powder packet (Miralax) 17 g PO DAILYPRN PRN constipation 01/21/24
quetiapine 25 mg tablet 12.5 mg PO BID Mental Health/Anxiety 01/21/24
sennosides 8.6 mg-docusate sodium 50 mg tablet 2 tab-cap PO DAILY Constipation 01/21/24
sodium phosphates 19 gram-7 gram/118 mL enema (Fleet Enema) 118 ml [place] DAILYPRN PRN if dulcolax ineffective aftr 24 hours 01/21/24
amlodipine 10 mg tablet 10 mg PO DAILY #30 tabs 01/26/24
hydromorphone 2 mg tablet 2 mg PO [id number] PRN severe pain #15 tabs 01/26/24
Saccharomyces boulardii 250 mg capsule (Florastor) 250 mg PO BID 03/03/24
sitagliptin phosphate 100 mg tablet (Januvia) 100 mg PO DAILY 03/03/24
Review of Systems
-
History Source: Patient
A 12 point ROS was completed and negative except as noted: Yes
Constitutional: Denies Fever or Chills
Respiratory: Denies Cough or Trouble Breathing
Cardiac: Denies Chest Pain or Palpitations
Abdomen/GI: Reports Abdominal Pain; Denies Nausea, Vomiting or Diarrhea
: Reports Dysuria and Frequency; Denies Flank Pain
Musculoskeletal: Denies Joint Pain or Edema
Neurological: Reports Weakness; Denies Dizzy or Headache
Psych: Denies Depression or Anxiety
Physical Exam
Vital Signs
Vital Signs
Temp Pulse Resp BP Pulse Ox
98.7 F 78 17 151/64 100
03/02/24 21:30 03/03/24 03:37 03/03/24 03:37 03/03/24 03:37 03/03/24 03:37
Physical Exam
General: Other (68y F in no acute distress.)
HEENT: Moist mucous membranes and Other (poor dentition.)
Respiratory: Clear; No Wheezes, Rales or Rhonchi
Cardiac: S1/S2 and Regular Rhythm; No Murmur
GI: Soft, Non Tender, Non Distended and Normal Bowel Sounds
Genito-urinary: Other (No significant / external excoriation, erythema, discharge, etc.)
Musculoskeletal: No Clubbing, No Cyanosis and No Edema
Neuro: AO x 3 and Other (L hemiparesis - chronic and unchanged.)
Laboratory Results
-
03/03/24 03:38
03/03/24 03:38
Laboratory Results
Lactic Acid 1.8 mmol/L (0.7-2.0) 03/03/24 03:38
Total Bilirubin 0.3 mg/dl (0.2-1.3) 03/03/24 03:38
AST 30 U/L (14-36) 03/03/24 03:38
ALT 47 U/L (0-35) H 03/03/24 03:38
Alkaline Phosphatase 167 U/L (38-126) H 03/03/24 03:38
Impression/Plan
-
A/P: Patient is a 68y F with PMH significant for CVA with L hemiparesis, HTN and DM-II who presents to ED complaining of > 1 month of urinary burning and abdominal pain.
Dysuria
- Observe overnight for further evaluation and treatment.
- Not clear that this represents bacterial UTI.
- UA contaminated with > 30 squamous cells - try to obtain more sterile sample.
- Follow-up urine culture results.
- Would observe off of additional abx for now.
- Continue symptom control measures including Pyridium, nortriptyline, gabapentin, etc.
- Follow for any changes in symptoms.
ASCVD
Left hemiparesis as Late Effect of CVA
- Stable. No new focal deficits.
- Continue current CV med regimen.
- Follow for any new symptoms or complaints.
Benign Hypertension
- Stable. Continue usual meds with holding parameters.
DM-II
- Stable. Continue basal : bolus insulin regimen.
- Follow glucose and cover with SSI.
- A1C during recent visit was 9.6%.
Vaginal Candidiasis
- s/p course of fluconazole after last hospitalization.
- Currently on boric acid suppositories and will continue for now.
- Follow-up with [facility] [employer] [employer] or UroGyn.
DVT Prophylaxis: Subcut Heparin
Code Status: Full
[2024-03-03] MEDS: AZACTAM 1000 MG IV (06:18)
--- NOTE | 2024-03-03 08:21 | W.PN.HOSP.TC ---
Addendum entered and electronically signed by Elizabeth Thornton MD 03/03/24 14:05:
I saw and evaluated the patient independently. I reviewed the resident�s note and agree with findings and plan as documented by Dr. Stern.
GENERAL: well developed, well nourished, female in no apparent distress
HEENT: NC/AT
HEART: regular rate and rhythm, +S1, +S2
LUNGS : clear to auscultation bilaterally
ABDOM: soft, nontender, nondistended, + bowel sounds
EXT: no cyanosis, clubbing, or edema
NEUROLOGIC: left hemiplegia
Dysuria-- suspect more interstitial cystitis as opposed to UTI--ED UA not clean catch--will repeat--no improvement with pyridium, gabapentin--consider increasing nortriptyline to daily--Urology consult but advised to have pt follow up with existing
outpt urology for cystoscopy given CT abd bladder findings seem more inflamm vs infection related changes--also on vaginal estradiol, consider increasing to daily, keep urine acidic--add vitamin C
CAD--Left hemiparesis as Late Effect of CVA- Stable. No new focal deficits- Continue current CV med regimen.
Essential Hypertension--Continue usual meds with holding parameters.
type 2 DM--cont januvia, lantus, aspart--check HGB A1C
Vaginal Candidiasis--s/p course of fluconazole after last hospitalization-- Currently on boric acid suppositories and will continue for now-- Follow-up with [employer] [facility] [facility] or UroGyn.
DVT Prophylaxis: Subcut Heparin
Code Status: Full
Original Note:
Today's Communication/Plan
-
Await Urine cultures
Assessment / Plan
Assessment / Plan
Impression: Patient is a 68y F with PMH significant for CVA with L hemiparesis, HTN and DM-II who presents to ED complaining of > 1 month of urinary burning and abdominal pain.
Assessment/Plan:
#Dysuria-possibly due to cystitis, less likely UTI
- Inital UA contaminated with > 30 squamous cells, Repeat UA with 6-10 squamous cells
- Urine culture pending
- Would observe off of additional abx for now
- Continue symptom control measures including Pyridium, nortriptyline, gabapentin, etc.
- Urology consult but advised to have pt follow up with existing outpt urology for cystoscopy given CT abd bladder findings seem more inflamm vs infection related changes
#ASCVD
Left hemiparesis as Late Effect of CVA
- Stable. No new focal deficits.
- Continue current CV med regimen.
#Benign Hypertension
- Stable. Continue usual meds with holding parameters.
#DM-II
- Stable. Continue basal : bolus insulin regimen.
- Follow glucose and cover with SSI.
- A1C during recent visit was 9.6%.
#Vaginal Candidiasis
- s/p course of fluconazole after last hospitalization.
- Currently on boric acid suppositories and will continue for now.
- Follow-up with [employer] [facility] or UroGyn.
DVT Prophylaxis: Subcut Heparin
Code Status: Full
Anticipated Discharge: 24 - 48 hours
Subjective/Interval History
-
Date of Service: March 03, 2024
Patient continues to have burning sensation and mild to moderate lower abdominal pain while urinating.
Objective Data
-
Labs:
Laboratory Results
03/03/24
03:38
WBC 11.2 H
Hgb 12.6
Hct 37.8
Plt Count 274
Sodium 141
Potassium 3.6
Chloride 101
Carbon Dioxide 29
BUN 13
Creatinine 0.4 L
Glucose 284 H
Calcium 9.2
Total Bilirubin 0.3
AST 30
ALT 47 H
Alkaline Phosphatase 167 H
Vital Signs:
Vital Signs
Temp Pulse Resp BP Pulse Ox
98.7 F 79 17 163/69 99
03/02/24 21:30 03/03/24 06:30 03/03/24 03:37 03/03/24 06:30 03/03/24 06:30
Review of Systems
-
All other systems: Reviewed and negative
Physical Exam
-
General: No Apparent Distress; Negative Fever
HEENT: Normocephalic
Respiratory: Clear to Auscultation
Cardiac: Regular Rhythm and S1/S2; Negative Murmur
GI: Soft, Nondistended and Tender (Lower abdominal tenderness present)
Musculoskeletal: No Edema
Skin: Warm and Dry
Neuro: Awake, Alert and Oriented
Psych: Calm
[2024-03-03 08:46] LABS: Glucose - Point of Care 272 mg/dl (70-99)
[2024-03-03] MEDS: LR 1000 IV ×2 (10:46→21:07)
[2024-03-03] MEDS: LANTUS 0.3 UNITS SC ×2 (10:46→21:21)
[2024-03-03] MEDS: HEPARIN 5000 UNITS SC ×2 (10:48→21:11)
[2024-03-03] MEDS: COLACE 100 MG PO ×2 (10:48→21:11)
[2024-03-03] MEDS: LIORESAL 10 MG PO ×3 (10:49→21:20)
[2024-03-03] MEDS: JANUVIA 100 MG PO (10:49)
[2024-03-03] MEDS: PLAVIX 75 MG PO (10:51)
[2024-03-03] MEDS: ADVAIR HFA 115/21 MCG INHALER INH (10:51)
[2024-03-03] MEDS: SEROQUEL 12.5 MG PO ×2 (10:52→21:18)
[2024-03-03] MEDS: FLORASTOR 250 MG PO ×2 (10:54→21:17)
[2024-03-03] MEDS: NORVASC 10 MG PO (10:54)
[2024-03-03] MEDS: REFRESH EYE DROPS (PF) 1 DROPS BOTH EYES ×3 (10:55→21:21)
[2024-03-03] MEDS: NEURONTIN 800 MG PO ×4 (11:07→21:20)
[2024-03-03] MEDS: SENOKOT-S 2 TABLET PO (11:07)
[2024-03-03] MEDS: NOVOLOG FLEXPEN-MODERATE RESISTANCE SC (11:26)
[2024-03-03 11:51] LABS: Urine Albumin 1+ (Neg - Trace); Urine Bilirubin 1+ (Negative); Urine Character Very Cloudy (Clear); Urine Color Yellow; Urine Glucose 2+ (Negative); Urine Ketone Negative (Negative); Urine Leukocyte 2+ (Negative); Urine Nitrite Positive (Negative); Urine Occult Blood 3+ (Negative); Urine Urobilinogen 1+ (Neg - 1+)
[2024-03-03 12:02] LABS: Urine Urothelial Cell 0-2 /LPF (FEW)
[2024-03-03 12:03] LABS: Urine Amorphous Seen; Urine White Cell >100 /HPF (0-5)
[2024-03-03 12:04] LABS: Urine Bacteria Moderate (Negative)
[2024-03-03 12:35] LABS: Glucose - Point of Care 264 mg/dl (70-99)
[2024-03-03] MEDS: CLARITIN 10 MG PO (13:43)
[2024-03-03] MEDS: NOVOLOG FLEXPEN-MODERATE RESISTANCE 5 UNITS SC (13:45)
[2024-03-03] MEDS: DILAUDID 2 MG PO (14:35)
[2024-03-03 16:29] LABS: Glucose - Point of Care 236 mg/dl (70-99)
[2024-03-03 17:25] LABS: Glucose - Point of Care 241 mg/dl (70-99)
[2024-03-03] MEDS: NOVOLOG FLEXPEN-MODERATE RESISTANCE 3 UNITS SC (18:00)
[2024-03-03] MEDS: VITAMIN C 250 MG PO (18:01)
[2024-03-03] MEDS: TYLENOL 650 MG PO (18:11)
[2024-03-03] MEDS: Pyridium 100 MG PO (18:12)
--- NOTE | 2024-03-03 19:30 | PTCARENOTE ---
Pt received from day shift nurse. Pt comfortably laying in bed, VSS, absent of pain. Pt bed in lowest position and call coats within reach. Pt educated on importance of call coats usage, pt relays understanding and cooperation. Will continue with
current plan of care.
[2024-03-03] MEDS: ADVAIR HFA 115/21 MCG INHALER 2 PUFF INH (19:36)
[2024-03-03] MEDS: PAMELOR 25 MG PO (21:20)
[2024-03-03] MEDS: LIPITOR 80 MG PO (21:20)
[2024-03-03] MEDS: MELATONIN 6 MG PO (21:20)
[2024-03-03] MEDS: PEPCID 20 MG PO (21:21)
[2024-03-03 21:29] LABS: Glucose - Point of Care 260 mg/dl (70-99)
[2024-03-03 22:26] LABS: Glucose - Point of Care 271 mg/dl (70-99)
[2024-03-04] MEDS: LR 1000 IV ×2 (01:49→14:08)
[2024-03-04 07:00] VITALS: BP 120/51
--- NOTE | 2024-03-04 07:26 | W.PN.HOSP.TC ---
Addendum entered and electronically signed by Elizabeth Thornton MD 03/04/24 13:46:
I saw and evaluated the patient independently. I reviewed the resident�s note and agree with findings and plan as documented by Dr. Stern.
GENERAL: well developed, well nourished, female in no apparent distress
HEENT: NC/AT
HEART: regular rate and rhythm, +S1, +S2
LUNGS : clear to auscultation bilaterally
ABDOM: soft, nontender, nondistended, + bowel sounds
EXT: no cyanosis, clubbing, or edema
NEUROLOGIC: left hemiplegia
Dysuria-- suspect more interstitial cystitis as opposed to UTI--ED UA not clean catch--repeat a bit better (6-10 sq cells)--no improvement with pyridium, gabapentin--consider increasing nortriptyline to daily--Urology consulted but advised to have
pt follow up with existing outpt urology for cystoscopy given CT abdomen bladder findings seem more inflamm vs infection related changes--also on vaginal estradiol, consider increasing to daily, keep urine acidic--add vitamin C--rocephin started
empirically--check CT scan ab/pelvis with oral and IV contrast
CAD--Left hemiparesis as Late Effect of CVA- Stable. No new focal deficits- Continue current CV med regimen.
Essential Hypertension--Continue usual meds with holding parameters.
type 2 DM--cont januvia, lantus, aspart--check HGB A1C
Vaginal Candidiasis--s/p course of fluconazole after last hospitalization-- Currently on boric acid suppositories and will continue for now-- Follow-up with [facility] or UroGyn.
DVT Prophylaxis: Subcut Heparin
Code Status: Full
Original Note:
Today's Communication/Plan
-
CT Abd with oral contrast
IV Rocephin
Assessment / Plan
Assessment / Plan
Impression: Patient is a 68y F with PMH significant for CVA with L hemiparesis, HTN and DM-II who presents to ED complaining of > 1 month of urinary burning and abdominal pain.
Assessment/Plan:
#Dysuria-possibly due to cystitis, less likely UTI
- Initial UA contaminated with > 30 squamous cells, Repeat UA with 6-10 squamous cells
- Urine culture pending
- Initiated IV Rocephin empirically
- Continue symptom control measures including Pyridium, nortriptyline, gabapentin, etc.
- Urology consult but advised to have pt follow up with existing outpt urology for cystoscopy given CT abd bladder findings seem more inflamm vs infection related changes
- CT abd/pelvis with oral contrast and NO IV contrast due to increased continued lower abd pain
- follow temp curve and monitor CBC
#ASCVD
Left hemiparesis as Late Effect of CVA
- Stable. No new focal deficits.
- Continue current CV med regimen.
#Benign Hypertension
- Stable. Continue usual meds with holding parameters.
#DM-II
- Stable. Continue basal : bolus insulin regimen.
- Follow glucose and cover with SSI.
- A1C during recent visit was 9.6%.
#Vaginal Candidiasis
- s/p course of fluconazole after last hospitalization.
- Currently on boric acid suppositories and will continue for now.
- Follow-up with [facility] or UroGyn.
DVT Prophylaxis: Subcut Heparin
Code Status: Full
Anticipated Discharge: 24 - 48 hours
Subjective/Interval History
-
Date of Service: March 04, 2024
Patient continues to have dysuria and lower abdominal pain. No fever or chills.
Objective Data
-
Labs:
Laboratory Results
03/04/24
06:00
WBC Pending
Hgb Pending
Hct Pending
Plt Count Pending
Vital Signs:
Vital Signs
Temp Pulse Resp BP Pulse Ox
97.9 F 76 18 117/47 100
03/03/24 23:38 03/03/24 23:38 03/03/24 23:38 03/03/24 23:38 03/03/24 23:38
I&O
03/03/24 03/04/24 03/05/24
06:59 06:59 06:59
Intake Total 2039
Output Total 450 / 450
Balance 1590 / 1590
Review of Systems
-
Constitutional: Denies Fever
Respiratory: Denies Trouble Breathing
Abdomen/GI: Reports Abdominal Pain; Denies Nausea or Vomiting
Genitourinary: Reports Dysuria
Skin: Reports No Symptoms
Neuro: Reports No Symptoms
Physical Exam
-
General: No Apparent Distress
HEENT: Normocephalic
Respiratory: Clear to Auscultation
Cardiac: Regular Rhythm and S1/S2; Negative Murmur
GI: Soft, Nondistended and Tender (lower abdominal pain)
Musculoskeletal: No Edema
Skin: Warm and Dry
Neuro: Awake, Alert and Oriented
Psych: Calm
[2024-03-04 07:39] LABS: Glucose - Point of Care 242 mg/dl (70-99)
[2024-03-04 08:24] LABS: Hematocrit 38.2 % (37.0-47.0); Hemoglobin 12.2 g/dL (12.0-16.0); Mean Corp Hgb Conc. 31.9 g/dL (33.0-37.0); Mean Corpuscular Hgb 27.9 pg (27.0-31.0); Mean Corpuscular Volume 87.4 fL (81.0-99.0); Mean Platelet Volume 10.8 fL (7.4-10.4); Platelet Count 273 10^3/uL (130-400); Red Blood Cell Count 4.37 10^6/uL (4.20-5.40); Red Cell Dist. Width 13.9 % (11.5-14.5); White Blood Cell Count 8.5 10^3/uL (4.8-10.8)
[2024-03-04] MEDS: ADVAIR HFA 115/21 MCG INHALER 2 PUFF INH ×2 (08:24→20:05)
[2024-03-04] MEDS: CLARITIN 10 MG PO (09:09)
[2024-03-04] MEDS: SENOKOT-S 2 TABLET PO (09:09)
[2024-03-04] MEDS: LANTUS 0.3 UNITS SC ×2 (09:09→20:10)
[2024-03-04] MEDS: VITAMIN C 250 MG PO (09:10)
[2024-03-04] MEDS: LIORESAL 10 MG PO ×3 (09:10→21:16)
[2024-03-04] MEDS: FLORASTOR 250 MG PO ×2 (09:10→20:04)
[2024-03-04] MEDS: NEURONTIN 800 MG PO ×3 (09:10→21:17)
[2024-03-04] MEDS: PLAVIX 75 MG PO (09:10)
[2024-03-04] MEDS: REFRESH EYE DROPS (PF) 1 DROPS BOTH EYES ×3 (09:10→21:17)
[2024-03-04] MEDS: HEPARIN 5000 UNITS SC ×2 (09:11→20:04)
[2024-03-04] MEDS: SEROQUEL 12.5 MG PO ×2 (09:11→20:04)
[2024-03-04] MEDS: NORVASC 10 MG PO (09:11)
[2024-03-04] MEDS: COLACE 100 MG PO ×2 (09:11→20:04)
[2024-03-04] MEDS: NOVOLOG FLEXPEN-MODERATE RESISTANCE 3 UNITS SC ×2 (09:17→17:08)
[2024-03-04 09:39] LABS: Glycohemoglobin (HgbA1c) 10.2 % (4.0-5.6)
[2024-03-04] MEDS: ROCEPHIN 1000 MG IV (09:42)
[2024-03-04] MEDS: STERILE WATER FOR INJECTION 10 ML IV (09:42)
[2024-03-04] MEDS: JANUVIA 100 MG PO (10:06)
[2024-03-04 11:26] LABS: ALT (SGPT) 39 U/L (0-35); AST (SGOT) 31 U/L (14-36); Albumin 3.5 g/dl (3.5-5.0); Alkaline Phosphatase 129 U/L (38-126); Blood Urea Nitrogen 13 mg/dl (7-17); Calcium 9.2 mg/dl (8.4-10.2); Carbon Dioxide 23 mmol/L (22-30); Chloride 104 mmol/L (98-107); Estimated Creatinine Clearance 101 ml/min; Glucose 239 mg/dl (70-99); Potassium 3.6 mmol/L (3.5-5.1); Sodium 138 mmol/L (135-145); Total Bilirubin 0.3 mg/dl (0.2-1.3); Total Protein 6.9 g/dl (6.3-8.2); eGFR > 60.00
[2024-03-04] MEDS: OMNIPAQUE 50 ML PO (12:02)
[2024-03-04 12:06] LABS: Glucose - Point of Care 250 mg/dl (70-99)
[2024-03-04] MEDS: NOVOLOG FLEXPEN-MODERATE RESISTANCE 5 UNITS SC (12:06)
[2024-03-04 15:00] VITALS: BP 127/95
--- NOTE | 2024-03-04 15:46 | CM ---
business support manager reviewed patient's chart and met with patient and explained to patient that she was admitted under OBS, [place] letter explained to patient and placed on chart. Patient was admitted from [facility], prior to living at [facility]
patient was living at [facility] for many years. Patient is requesting possible placement at [facility], per patient she is on the wait list for [facility], patient is also asking about [facility] and returning to
[facility] at discharge, heel caser explained to patient that she may have to return to [facility] and staff will follow up with alternative placement from there, patient agreed.
Plan; Patient to return to [facility] when stable, patient is total [facility].
[facility]
[phone]
[phone]
[2024-03-04] MEDS: NEURONTIN PO (17:04)
[2024-03-04 17:11] LABS: Glucose - Point of Care 212 mg/dl (70-99)
[2024-03-04 20:10] LABS: Glucose - Point of Care 270 mg/dl (70-99)
[2024-03-04] MEDS: MELATONIN 6 MG PO (21:17)
[2024-03-04] MEDS: PEPCID 20 MG PO (21:17)
[2024-03-04] MEDS: LIPITOR 80 MG PO (21:17)
[2024-03-04 22:06] LABS: Glucose - Point of Care 287 mg/dl (70-99)
[2024-03-04 23:30] VITALS: BP 118/50
[2024-03-05 07:10] VITALS: BP 177/75
--- NOTE | 2024-03-05 07:26 | W.PN.HOSP.TC ---
Addendum entered and electronically signed by Laurent Delacruz MD 03/05/24 17:42:
Seen and examined by me independently in collaboration with the certified medical aide.
Lab data and imaging data reviewed.
Addendum as below :
Continued dysuria but denies any retention symptoms. No fever or chills. Abdomen benign.
No nausea vomiting. Tolerating diet.
Urine culture data noted. Gram-negative bacilli in the urine noted continue with ceftriaxone for now and follow culture data.
CT of the abdomen pelvis on this admission showed left mild hydroureteronephrosis and bladder wall thickening concerning for cystitis. Creatinine is okay. Will consult urology.
Original Note:
Today's Communication/Plan
-
Continue IV rocephin
Assessment / Plan
Assessment / Plan
Impression: Patient is a 68y F with PMH significant for CVA with L hemiparesis, HTN and DM-II who presents to ED complaining of > 1 month of urinary burning and abdominal pain.
Assessment/Plan:
#Dysuria-possibly due to cystitis, less likely UTI
- Initial UA contaminated with > 30 squamous cells, Repeat UA with 6-10 squamous cells
- Urine culture pending
- Continue IV Rocephin (sensitive as per culture report)
- Continue symptom control measures including Pyridium, nortriptyline, gabapentin, etc.
- Urology consult on 03/03 but advised to have pt follow up with existing outpt urology for cystoscopy given last month CT abd bladder findings seem more inflamm vs infection related changes
- CT abd/pelvis with oral contrast 02/02: Mild bladder wall thickening. interval development of mild hydroureteronephrosis on the left associated minor periureteral soft tissue stranding, suggesting obstructive uropathy.
-Urology consulted today, recommended further care with pt's existing outpatient follow up and treatment of UTI due to no emergent need of cystoscopy.
-Straight cath for repeat UA today but patient refused
- follow temp curve and monitor CBC
#ASCVD
Left hemiparesis as Late Effect of CVA
- Stable. No new focal deficits.
- Continue current CV med regimen.
#Benign Hypertension
- Stable. Continue usual meds with holding parameters.
#DM-II
- Stable. Continue basal : bolus insulin regimen.
- Follow glucose and cover with SSI.
- A1C during recent visit was 9.6%.
#Vaginal Candidiasis
- s/p course of fluconazole after last hospitalization.
- Currently on boric acid suppositories and will continue for now.
DVT Prophylaxis: Subcut Heparin
Code Status: Full
Anticipated Discharge: 24 - 48 hours
Subjective/Interval History
-
Date of Service: March 05, 2024
Patient continues to have dysuria and mild lower abdominal pain. Denies any vomiting, diarrhea or fever.
Objective Data
-
Labs:
Laboratory Results
03/05/24
06:33
WBC Pending
Hgb Pending
Hct Pending
Plt Count Pending
Sodium Pending
Potassium Pending
Chloride Pending
Carbon Dioxide Pending
BUN Pending
Creatinine Pending
Glucose Pending
Calcium Pending
Total Bilirubin Pending
AST Pending
ALT Pending
Alkaline Phosphatase Pending
Vital Signs:
Vital Signs
Temp Pulse Resp BP Pulse Ox
97.9 F 76 16 118/50 95
03/04/24 23:30 03/04/24 23:30 03/04/24 23:30 03/04/24 23:30 03/04/24 23:30
I&O
03/04/24 03/05/24 03/06/24
06:59 06:59 06:59
Intake Total 2040 / 2040 720 / 720 480 / 480
Output Total 450 / 450 600 / 600 700 / 700
Balance 1590 / 1590 120 / 120 -220 / -220
Review of Systems
-
All other systems: Reviewed and negative
Physical Exam
-
General: No Apparent Distress
HEENT: Normocephalic
Respiratory: Clear to Auscultation
Cardiac: Regular Rhythm and S1/S2; Negative Murmur
GI: Soft, Nontender and Nondistended
Musculoskeletal: No Edema
Skin: Warm and Dry
Neuro: Awake, Alert and Oriented
Psych: Calm
[2024-03-05 07:56] LABS: Glucose - Point of Care 210 mg/dl (70-99)
[2024-03-05] MEDS: ADVAIR HFA 115/21 MCG INHALER 2 PUFF INH ×2 (08:21→20:41)
[2024-03-05 08:27] LABS: % Eosinophils 5.5 % (0-6); % Immature Granulocytes 0.3 % (0-0.5); % Lymphocytes 34.4 % (20.5-51.1); % Monocytes 9.9 % (1.7-9.3); % Neutrophils 48.9 % (42.2-75.2); Absolute Basophils 0.1 10^3/uL (0-0.2); Absolute Eosinophils 0.5 10^3/uL (0-0.7); Absolute Lymphocytes 3.1 10^3/uL (1.2-3.4); Absolute Monocytes 0.9 10^3/uL (0.1-0.6); Absolute Neutrophils 4.4 10^3/uL (1.4-6.5); Hematocrit 35.7 % (37.0-47.0); Hemoglobin 11.8 g/dL (12.0-16.0); Mean Corp Hgb Conc. 33.1 g/dL (33.0-37.0); Mean Corpuscular Hgb 28.6 pg (27.0-31.0); Mean Corpuscular Volume 86.4 fL (81.0-99.0); Mean Platelet Volume 11.5 fL (7.4-10.4); Nucleated Red Blood Cells % 0 %; Platelet Count 248 10^3/uL (130-400); Red Blood Cell Count 4.13 10^6/uL (4.20-5.40)
[2024-03-05 09:04] LABS: ALT (SGPT) 35 U/L (0-35); AST (SGOT) 24 U/L (14-36); Albumin 3.5 g/dl (3.5-5.0); Alkaline Phosphatase 112 U/L (38-126); Blood Urea Nitrogen 12 mg/dl (7-17); Calcium 9.1 mg/dl (8.4-10.2); Carbon Dioxide 26 mmol/L (22-30); Chloride 100 mmol/L (98-107); Estimated Creatinine Clearance 101 ml/min; Glucose 209 mg/dl (70-99); Potassium 3.9 mmol/L (3.5-5.1); Sodium 134 mmol/L (135-145); Total Bilirubin 0.3 mg/dl (0.2-1.3); eGFR > 60.00
[2024-03-05] MEDS: NOVOLOG FLEXPEN-MODERATE RESISTANCE 3 UNITS SC ×2 (10:21→13:40)
[2024-03-05] MEDS: LANTUS 0.3 UNITS SC ×2 (10:21→20:49)
[2024-03-05] MEDS: NEURONTIN 800 MG PO ×4 (10:22→20:47)
[2024-03-05] MEDS: NORVASC 10 MG PO (10:22)
[2024-03-05] MEDS: HEPARIN 5000 UNITS SC ×2 (10:22→20:50)
[2024-03-05] MEDS: VITAMIN C 250 MG PO (10:22)
[2024-03-05] MEDS: FLORASTOR 250 MG PO ×2 (10:23→20:47)
[2024-03-05] MEDS: CLARITIN 10 MG PO (10:23)
[2024-03-05] MEDS: REFRESH EYE DROPS (PF) 1 DROPS BOTH EYES ×2 (10:23→20:48)
[2024-03-05] MEDS: SENOKOT-S 2 TABLET PO (10:24)
[2024-03-05] MEDS: SEROQUEL 12.5 MG PO ×2 (10:24→20:48)
[2024-03-05] MEDS: PLAVIX 75 MG PO (10:24)
[2024-03-05] MEDS: LIORESAL 10 MG PO ×3 (10:24→20:47)
[2024-03-05] MEDS: COLACE 100 MG PO ×2 (10:24→20:46)
[2024-03-05] MEDS: JANUVIA 100 MG PO (10:25)
[2024-03-05 11:00] VITALS: BP 130/61
[2024-03-05] MEDS: STERILE WATER FOR INJECTION 10 ML IV (11:33)
[2024-03-05] MEDS: ROCEPHIN 1000 MG IV (11:33)
[2024-03-05] MEDS: BENADRYL 12.5 MG IV (11:33)
[2024-03-05 12:26] LABS: Glucose - Point of Care 238 mg/dl (70-99)
[2024-03-05 15:00] VITALS: BP 145/70
[2024-03-05 16:47] LABS: Glucose - Point of Care 281 mg/dl (70-99)
[2024-03-05] MEDS: REFRESH EYE DROPS (PF) BOTH EYES (18:19)
[2024-03-05] MEDS: NOVOLOG FLEXPEN-MODERATE RESISTANCE 281 UNITS SC (18:29)
[2024-03-05] MEDS: MELATONIN 6 MG PO (20:47)
[2024-03-05] MEDS: LIPITOR 80 MG PO (20:48)
[2024-03-05] MEDS: PAMELOR 25 MG PO (20:48)
[2024-03-05] MEDS: PEPCID 20 MG PO (20:48)
[2024-03-05 22:25] LABS: Glucose - Point of Care 295 mg/dl (70-99)
[2024-03-05 23:00] VITALS: BP 130/61
[2024-03-05] MEDS: DILAUDID 2 MG PO (23:58)
[2024-03-06 07:41] VITALS: BP 138/69
[2024-03-06] MEDS: ADVAIR HFA 115/21 MCG INHALER 2 PUFF INH ×2 (07:54→20:27)
[2024-03-06 08:47] LABS: Glucose - Point of Care 170 mg/dl (70-99)
[2024-03-06 10:16] LABS: ALT (SGPT) 36 U/L (0-35); AST (SGOT) 31 U/L (14-36); Albumin 3.8 g/dl (3.5-5.0); Alkaline Phosphatase 105 U/L (38-126); Blood Urea Nitrogen 13 mg/dl (7-17); Calcium 9.1 mg/dl (8.4-10.2); Carbon Dioxide 27 mmol/L (22-30); Chloride 100 mmol/L (98-107); Estimated Creatinine Clearance 101 ml/min; Glucose 187 mg/dl (70-99); Potassium 4.3 mmol/L (3.5-5.1); Sodium 137 mmol/L (135-145); Total Bilirubin 0.4 mg/dl (0.2-1.3); Total Protein 7.5 g/dl (6.3-8.2); eGFR > 60.00
[2024-03-06 10:30] LABS: % Basophils 1.4 % (0-2); % Eosinophils 4.8 % (0-6); % Immature Granulocytes 0.1 % (0-0.5); % Lymphocytes 36.1 % (20.5-51.1); % Monocytes 7.8 % (1.7-9.3); % Neutrophils 49.8 % (42.2-75.2); Absolute Basophils 0.1 10^3/uL (0-0.2); Absolute Eosinophils 0.3 10^3/uL (0-0.7); Absolute Lymphocytes 2.6 10^3/uL (1.2-3.4); Absolute Monocytes 0.6 10^3/uL (0.1-0.6); Absolute Neutrophils 3.6 10^3/uL (1.4-6.5); Hematocrit 34.7 % (37.0-47.0); Hemoglobin 12.2 g/dL (12.0-16.0); Mean Corp Hgb Conc. 35.2 g/dL (33.0-37.0); Mean Corpuscular Hgb 28.4 pg (27.0-31.0); Mean Corpuscular Volume 80.7 fL (81.0-99.0); Nucleated Red Blood Cells % 0 %; White Blood Cell Count 7.2 10^3/uL (4.8-10.8)
[2024-03-06] MEDS: LANTUS 0.3 UNITS SC ×2 (10:39→22:00)
[2024-03-06] MEDS: NOVOLOG FLEXPEN-MODERATE RESISTANCE 1 UNITS SC (10:39)
[2024-03-06] MEDS: FLORASTOR 250 MG PO ×2 (10:40→21:47)
[2024-03-06] MEDS: SEROQUEL 12.5 MG PO ×2 (10:40→21:47)
[2024-03-06] MEDS: REFRESH EYE DROPS (PF) 1 DROPS BOTH EYES ×2 (10:40→21:48)
[2024-03-06] MEDS: COLACE 100 MG PO ×2 (10:40→21:47)
[2024-03-06] MEDS: NORVASC 10 MG PO (10:40)
[2024-03-06] MEDS: CLARITIN 10 MG PO (10:40)
[2024-03-06] MEDS: VITAMIN C 250 MG PO (10:40)
[2024-03-06] MEDS: NEURONTIN 800 MG PO ×4 (10:40→21:48)
[2024-03-06] MEDS: JANUVIA 100 MG PO (10:41)
[2024-03-06] MEDS: PLAVIX 75 MG PO (10:41)
[2024-03-06] MEDS: HEPARIN 5000 UNITS SC ×2 (10:42→21:47)
[2024-03-06] MEDS: SENOKOT-S 2 TABLET PO (10:42)
[2024-03-06] MEDS: STERILE WATER FOR INJECTION 10 ML IV (10:42)
[2024-03-06] MEDS: LIORESAL 10 MG PO ×3 (10:42→21:48)
[2024-03-06] MEDS: ROCEPHIN 1000 MG IV (10:42)
[2024-03-06 12:34] LABS: Glucose - Point of Care 214 mg/dl (70-99)
[2024-03-06] MEDS: NOVOLOG FLEXPEN-MODERATE RESISTANCE 3 UNITS SC (12:48)
--- NOTE | 2024-03-06 13:58 | W.PN.HOSP.TC ---
Today's Communication/Plan
-
CW CTX
DC planning
Assessment / Plan
Assessment / Plan
Impression: Patient is a 68y F with PMH significant for CVA with L hemiparesis, HTN and DM-II who presents to ED complaining of > 1 month of urinary burning and abdominal pain.
Assessment/Plan:
#Dysuria-possibly due to cystitis, less likely UTI
- Initial UA contaminated with > 30 squamous cells, Repeat UA with 6-10 squamous cells
- Urine culture n oted
- Continue IV Rocephin (sensitive as per culture report)
- Continue symptom control measures including Pyridium, nortriptyline, gabapentin, etc.
- Urology consult on 03/03 but advised to have pt follow up with existing outpt urology for cystoscopy given last month CT abd bladder findings seem more inflamm vs infection related changes
- CT abd/pelvis with oral contrast 02/02: Mild bladder wall thickening. interval development of mild hydroureteronephrosis on the left associated minor periureteral soft tissue stranding, suggesting obstructive uropathy.
-Urology consulted 03/05, recommended further care with pt's existing outpatient follow up and treatment of UTI due to no emergent need of cystoscopy.
-Straight cath for repeat UA today but patient refused
- follow temp curve and monitor CBC
#ASCVD
Left hemiparesis as Late Effect of CVA
- Stable. No new focal deficits.
- Continue current CV med regimen.
#Benign Hypertension
- Stable. Continue usual meds with holding parameters.
#DM-II
- Stable. Continue basal : bolus insulin regimen.
- Follow glucose and cover with SSI.
- A1C during recent visit was 9.6%.
#Vaginal Candidiasis
- s/p course of fluconazole after last hospitalization.
- Currently on boric acid suppositories and will continue for now.
DVT Prophylaxis: Subcut Heparin
Code Status: Full
DC to facility in am if continued improvement
Anticipated Discharge: Within 24 hours
Subjective/Interval History
-
Date of Service: March 06, 2024
Feeling improved from dysuria
No fever or chills
No N/V or abdo pain
Objective Data
-
Labs:
Laboratory Results
03/06/24 03/06/24
06:07 09:51
WBC Cancelled 7.2
Hgb Cancelled 12.2
Hct Cancelled 34.7 L
Plt Count Cancelled
Sodium Cancelled 137
Potassium Cancelled 4.3
Chloride Cancelled 100
Carbon Dioxide Cancelled 27
BUN Cancelled 13
Creatinine Cancelled 0.5 L
Glucose Cancelled 187 H
Calcium Cancelled 9.1
Total Bilirubin Cancelled 0.4
AST Cancelled 31
ALT Cancelled 36 H
Alkaline Phosphatase Cancelled 105
Vital Signs:
Vital Signs
Temp Pulse Resp BP Pulse Ox
97.6 F 68 18 138/69 98
03/06/24 07:41 03/06/24 07:59 03/06/24 07:59 03/06/24 07:41 03/06/24 07:59
I&O
03/05/24 03/06/24 03/07/24
06:59 06:59 06:59
Intake Total 720 / 720 1800 / 1800
Output Total 600 / 600 1450 / 1450
Balance 120 / 120 350 / 350
Physical Exam
-
General: No Apparent Distress
HEENT: Moist Mucous Membranes
Respiratory: Non Labored Respirations; Negative Accessory Resp Muscle Use
Cardiac: Regular Rhythm and S1/S2
GI: Soft and Nontender
Neuro: AO x 3; Negative No Motor Deficits (chronic left hemiparesis)
Psych: Calm
Data Reviewed
-
Labs: Labs Reviewed by me (ucx)
[2024-03-06 15:10] VITALS: BP 124/82
[2024-03-06 16:55] LABS: Glucose - Point of Care 332 mg/dl (70-99)
[2024-03-06] MEDS: REFRESH EYE DROPS (PF) BOTH EYES (17:23)
[2024-03-06] MEDS: NOVOLOG FLEXPEN-MODERATE RESISTANCE 7 UNITS SC (17:24)
[2024-03-06] MEDS: LIPITOR 80 MG PO (21:47)
[2024-03-06] MEDS: MELATONIN 6 MG PO (21:48)
[2024-03-06] MEDS: PEPCID 20 MG PO (21:50)
[2024-03-06 22:12] LABS: Glucose - Point of Care 258 mg/dl (70-99)
[2024-03-06 23:00] VITALS: BP 142/64
--- NOTE | 2024-03-07 06:09 | PTCARENOTE ---
Pt. was irritated overnight and asked why she 'had not been receiving her vaginal suppository for her infection?' This nurse explained that the order was still pending and that we most likely did not carry the suppository in our pharmacy but that
the pt. was welcome to have the medication brought in during here stay in the hospital. The pt. stated that 'the idea of that is ridiculous and your pharmacy should have to go to another pharmacy to get it.' This nurse attempted to educate pt.
regarding medications that are not carried in the hospital pharmacy but pt. refused to listen and just again stated that it was 'ridiculous.'
Overnight pt. also becoming increasingly irritated regarding ABT administration. Pt. stated that it was ridiculous that the 'drs are going to stop giving me my antibiotics when they are finally starting to work, they need to give them to me longer.'
This nurse again attempted to educate pt. regarding course of treatment and safe and effective medication (ABT) administration tpo which pt. responded with 'I don't care about research ar any of that......I want him to keep giving me the medicine.'
Pt. resting in bed comfortasbly in med at this time. Will continue to monitor.
[2024-03-07 07:17] LABS: Glucose - Point of Care 229 mg/dl (70-99)
[2024-03-07 07:35] VITALS: BP 167/74
[2024-03-07] MEDS: ADVAIR HFA 115/21 MCG INHALER 2 PUFF INH (08:14)
[2024-03-07] MEDS: VITAMIN C 250 MG PO (10:15)
[2024-03-07] MEDS: CLARITIN 10 MG PO (10:16)
[2024-03-07] MEDS: FLORASTOR 250 MG PO (10:16)
[2024-03-07] MEDS: COLACE 100 MG PO (10:16)
[2024-03-07] MEDS: NORVASC 10 MG PO (10:16)
[2024-03-07] MEDS: JANUVIA 100 MG PO (10:16)
[2024-03-07] MEDS: PLAVIX 75 MG PO (10:16)
[2024-03-07] MEDS: SEROQUEL 12.5 MG PO (10:16)
[2024-03-07] MEDS: LANTUS 0.3 UNITS SC (10:17)
[2024-03-07] MEDS: NOVOLOG FLEXPEN-MODERATE RESISTANCE 3 UNITS SC (10:17)
[2024-03-07] MEDS: NEURONTIN 800 MG PO ×2 (10:17→12:03)
[2024-03-07] MEDS: LIORESAL 10 MG PO (10:17)
[2024-03-07] MEDS: STERILE WATER FOR INJECTION 10 ML IV (10:20)
[2024-03-07] MEDS: ROCEPHIN 1000 MG IV (10:20)
[2024-03-07] MEDS: REFRESH EYE DROPS (PF) BOTH EYES (10:22)
[2024-03-07] MEDS: SENOKOT-S 2 TABLET PO (10:22)
[2024-03-07] MEDS: HEPARIN 5000 UNITS SC (10:25)
[2024-03-07 11:37] LABS: Glucose - Point of Care 293 mg/dl (70-99)
[2024-03-07] MEDS: NOVOLOG FLEXPEN-MODERATE RESISTANCE 5 UNITS SC (12:03)
--- NOTE | 2024-03-07 13:05 | CM ---
CM reviewed chart, reviewed with Hospitalist, clear for discharge. Patient LTC resident at [facility], able to accept return of patient today. Patient seen bedside, IMM verbally reviewed, provided with copy. Patient scheduled for 2:30 p.m.
ambulance transport. CM will continue to follow for all discharge planning needs.
Plan; return to [facility] LTC, 2:30 p.m. ambulance transport
[facility]
Report: [phone]
--- NOTE | 2024-03-07 13:52 | W.DCSUMMARY ---
Discharge Summary
Discharge Data
Date of Admission: 03/04/24
Date of Discharge: 03/07/24
-
Pending Results: No
Hospital Course
Primary diagnosis:
Urinary tract infection with E. coli
Secondary diagnosis:
Benign hypertension
History of stroke with left hemiparesis
Diabetes mellitus type 2 with hemoglobin A1c 10.2
History of atherosclerotic cardiovascular disease
Hospital course: 68-year-old lady with a history of CVA and left hemiparesis and diabetes mellitus presented with dysuria and abdominal pain. Patient about with a prior history of UTIs and was seeing a urologist as an outpatient and advised the
outpatient cystoscopy. Urinalysis was positive and culture grew E. coli. She improved with the dysuria with the ceftriaxone treatments which was switched to Cefpodoxime. She has a allergy to cefuroxime but no reactions were noted with the
cephalosporins here with third-generation ceftriaxone.
She had a CT of the abdomen pelvis which showed Mild bladder wall thickening. Slightly indistinct margins. No bladder calculus. No renal or ureteral calculus, bilaterally. However, interval development of mild hydroureteronephrosis on the left
associated minor periureteral soft tissue stranding, suggesting obstructive uropathy. Possibly secondary to bladder wall thickening. Stable 2.3 cm right renal cyst. Creatinine is ok. This was discussed with urology here and they recommended no
interventions were to treat the UTI and advised her to follow-up with the her urologist as outpatient.
Her blood sugars were elevated here on her Lantus and sliding scale regimen. She is on Januvia. Her hemoglobin A1c was 10.2. She states that she gets blood sugar checks on a regular basis. Advised her to follow-up with her surgical territory manager or
facility physician to uptitrate Lantus as needed.
Today on the day of discharge she is afebrile and hemodynamically stable. Oxygenating well. She is tolerating a diet without nausea vomiting diarrhea. No shortness of breath. Chest was clear. Abdomen is benign. She was alert and oriented x 3
without confusion.
Discharge Plan
-
Patient Disposition: [facility]NF
Discharge Diagnosis/Procedures: UTI
Diet: Diabetic, Carb Controlled
Activity: As tolerated
Driving Restrictions: No driving
Others Tests: Accuchecks AC and adjust Lantus as needed
Activity Restrictions/Additional Instructions:
Follow-up with your urologist Dr. Oliva as planned
Referrals:
Christophe Winters MD [Family Provider] - in less than 1 week
Prescriptions:
New
cefpodoxime 100 mg tablet
100 mg PO BID Qty: 6 0RF
Rx Instructions:
for 3 more days
Continued
quetiapine 25 mg Tablet
12.5 mg PO BID
fluticasone propion-salmeterol [Advair Diskus] 250-50 mcg/dose Blister With Device
1 inh INHALATION R BID
atorvastatin 80 mg Tablet
80 mg PO HS
acetaminophen [Tylenol] 325 mg Tablet
650 mg PO Q4HPRN PRN (Reason: mild pain/temp >100)
ipratropium-albuterol 0.5 mg-3 mg(2.5 mg base)/3 mL Solution For Nebulization
3 ml INHALATION R Q6HPRN PRN (Reason: sob)
omega-3 fatty acids 1,000 mg Capsule
1,000 mg PO DAILY
polyethylene glycol 3350 [Miralax] 17 gram Powder In Packet
17 g PO DAILYPRN PRN (Reason: constipation)
sennosides-docusate sodium 8.6-50 mg Tablet
2 tab-cap PO DAILY
melatonin 3 mg Tablet
6 mg PO HS
clopidogrel 75 mg Tablet
75 mg PO DAILY
guaifenesin 100 mg/5 mL Liquid
100 mg PO Q4HPRN PRN (Reason: cough)
nortriptyline 25 mg Capsule
25 mg PO Q48H@2200
famotidine 20 mg Tablet
20 mg PO HS
magnesium hydroxide [Milk of Magnesia] 400 mg/5 mL Suspension
30 ml PO [id number] PRN (Reason: no bm 3 days)
gabapentin 800 mg Tablet
800 mg PO QID
phenazopyridine 100 mg Tablet
100 mg PO TIDPRN PRN (Reason: bladder pain)
baclofen 10 mg Tablet
10 mg PO TID
insulin aspart U-100 100 unit/mL Solution
0 unit SC MEALS
Rx Instructions:
201-250=4units, 251-300=4units
bisacodyl [Dulcolax (bisacodyl)] 10 mg Suppository
10 mg FL DAILYPRN PRN (Reason: if mom ineffective after 24 hours)
Fleet Enema 19-7 gram/118 mL Enema
118 ml FL DAILYPRN PRN (Reason: if dulcolax ineffective aftr 24 hours)
docusate sodium 100 mg Capsule
100 mg PO BID
calcium carbonate 500 mg calcium (1,250 mg) Tablet,Chewable
500 mg PO Q6HPRN PRN (Reason: indigestion)
estradiol 0.01 % (0.1 mg/gram) Cream
2 g VAGINAL Q48H@2200
fluticasone propionate 50 mcg/actuation [place],Suspension
2 spray INTRANASAL DAILY
loratadine [Claritin] 10 mg Tablet
10 mg PO DAILY
Systane Ultra 0.4-0.3 % Drops
1 drp BOTH EYES TID
insulin glargine [Lantus Solostar U-100 Insulin] 100 unit/mL (3 mL) Insulin Pen
33 unit SC BID
cholecalciferol (vitamin D3) [Vitamin D3] 50 mcg (2,000 unit) Tablet
50 mcg PO DAILY
Cepacol Sore Throat (petty-men) 15-3.6 mg Lozenge
1 shade MUCOUS MEMBRANE Q6HPRN PRN (Reason: sore throat)
d-mannose 500 mg Capsule
500 mg PO DAILY
boric acid 600 mg Suppository
600 mg VAGINAL HS
Rx Instructions:
start 02/24/24-Through 03/09.
amlodipine 10 mg Tablet
10 mg PO DAILY Qty: 30 0RF
hydromorphone 2 mg Tablet
2 mg PO [id number] PRN (Reason: severe pain) Qty: 15 0RF
Saccharomyces boulardii [Florastor] 250 mg Capsule
250 mg PO BID
alum-mag hydroxide-simeth [Maalox Maximum Strength] 400-400-40 mg/5 mL Suspension
30 ml PO Q4HPRN PRN (Reason: indigestion)
Januvia 100 mg Tablet
100 mg PO DAILY Qty: 0 0RF
Rx Instructions:
Pt likes to stop it;advised to follow with her surgical territory manager.
Discharge Orders:
Discharge Patient (As Directed); Ordered 03/07/24
Ordered By: Laurent Delacruz
Discharge Date and Time
Print Language: YAKUT
[2024-03-07 14:09] VITALS: BP 140/63
[2024-03-07 14:45] VITALS: BP 145/60
== END 2024-03-07 15:24 | DRG 690 ==
LOC: 4 WEST ACU 19:54
PROVIDERS: Clinical Nurse Specialist Family Health; Internal Medicine; Student in an Organized Health Care Education/Training Program; ADMITTING PHYSICIAN Hospitalist; ATTENDING PHYSICIAN Internal Medicine; EMERGENCY PHYSICIAN Student in an Organized Health Care Education/Training Program; FAMILY PHYSICIAN Internal Medicine
DX: N13.6 Pyonephrosis (principal); I69.354 Hemiplegia and hemiparesis following cerebral infarction affecting left non-dominant side; B96.20 Unspecified Escherichia coli [E. coli] as the cause of diseases classified elsewhere; I10 Essential (primary) hypertension; I25.10 Atherosclerotic heart disease of native coronary artery without angina pectoris; E11.40 Type 2 diabetes mellitus with diabetic neuropathy, unspecified; Z87.440 Personal history of urinary (tract) infections; Z79.84 Long term (current) use of oral hypoglycemic drugs; Z79.51 Long term (current) use of inhaled steroids; Z79.4 Long term (current) use of insulin; Z79.899 Other long term (current) drug therapy; N28.1 Cyst of kidney, acquired; B37.31 Acute candidiasis of vulva and vagina; Z85.42 Personal history of malignant neoplasm of other parts of uterus; Z90.710 Acquired absence of both cervix and uterus; G89.4 Chronic pain syndrome; F32.A Depression, unspecified; F41.9 Anxiety disorder, unspecified; Z87.891 Personal history of nicotine dependence; Z88.1 Allergy status to other antibiotic agents; Z88.0 Allergy status to penicillin; Z88.8 Allergy status to other drugs, medicaments and biological substances; G43.909 Migraine, unspecified, not intractable, without status migrainosus; J45.909 Unspecified asthma, uncomplicated; K58.9 Irritable bowel syndrome, unspecified
CPT/HCPCS: 74176; 76770; 80053; 81003; 81015; 82962; 83036; 83605; 85025; 85027; 87070; 87077; 87086; 87186; 94640

== ENCOUNTER → 2025-02-02 07:48 | Outpatient (REF) | payer MEDICARE, OTHER, SELFPAY | LOC: RAD 07:48 | PROVIDERS: FAMILY PHYSICIAN Internal Medicine | DX: R18.8 Other ascites (principal); N28.89 Other specified disorders of kidney and ureter; K76.89 Other specified diseases of liver | CPT/HCPCS: 74150 ==